=== PATIENT | male | born 1945 | race Caucasian/White ===

== ENCOUNTER 2017-02-20 17:37 | Inpatient (IN) | payer MEDICARE ==
[~2017-02-20] VITALS: Ht 172.7 cm; Wt 92.0 kg
--- NOTE | 2017-02-20 18:15 | NUR ---
Admit Direct admit from urgent care. Pt ambulates into hospital independently with steady gait and mask on. C/O coughing up bloody sputum. Denies Pain, CP, SOB, Nausea. Endorses appetite changes and little to no appetite. TB Precautions in place. at bedside. Care continues
[2017-02-20] MEDS ORDERED: Alum-Mag Hydrox-Simeth 30 mL Suspension PO PRN (19:45)
[2017-02-20] MEDS ORDERED: Polyethylene Glycol (PEG) 17 Gm Powder PO PRN (19:45)
[2017-02-20] MEDS ORDERED: Ondansetron 2 mg/mL 2 mL Inj IVPUSH PRN (19:45)
[2017-02-20 20:00] VITALS: BP 133/77; PULSE 86; RESP 18; O2SAT 96
[2017-02-20] MEDS ORDERED: UBID1CAP52 PO (20:19)
[2017-02-20] MEDS ORDERED: MULT-663 PO (20:19)
[2017-02-20] MEDS ORDERED: ASPI81TA3 PO (20:19)
[2017-02-20] MEDS ORDERED: COLC0.6T52 PO (20:19)
[2017-02-20 20:49] LABS: BASOPHILS % (AUTO) 0.2 % (0-3); EOSINOPHILS % (AUTO) 0.9 % (0-5); MONOCYTES % (AUTO) 19.1 % (4-12); Mean Corpuscular Hemoglobin 31.7 pg (27.0-35.0); Mean Corpuscular Volume 90.6 fL (81-100); NEUTROPHILS % (AUTO) 68.1 % (40-74); Platelet Count 166 bil/L (150-400)
[2017-02-20 21:23] LABS: Magnesium 1.8 mg/dL (1.6-2.6)
[2017-02-20] MEDS: 0.9% Sodium Chloride 1,000 ML IV SCH (23:37)
[2017-02-20] MEDS ORDERED: 0.9% Sodium Chloride 1,000 ML IV SCH (23:45)
--- NOTE | 2017-02-20 23:48 | PCM.HPMED ---
Subjective Date of Service Feb 20, 2017 Primary Provider: Admitting Physician: Gera Arzola MD Primary Care Physician: Abelardo eMndoza MD Attending Physician: Gera Arzola MD Chief Complaint: Hemoptysis History of Present Illness: Mr. Ritchie is a 71-year-old male with past medical history of gout and long-time nicotine dependence presented today to the urgent care secondary to hemoptysis 3 days. This is been accompanied with generalized weakness, night sweats, headaches and a reported 100 pound weight loss over the last 2 years. He states he was "runin a chainsaw" when these symptoms started 3 days ago and he has been coughing up clotted blood intermittently ever since. He states some shortness of breath though denies chest pain, palpitations. On inhalation or exhalation, abdominal pain, GI or symptoms numbness or tingling in his extremities, visual disturbances. Does not endorse a small headache but he states this is chronic ever since he was a small child. 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 States he has had asbestos exposure both in the [place] and then in his career afterwards. He states he did have a TB exposure in the 1950s from a neighbor child. Denies travel outside the [place] though does state travel to [facility] most parts of [place] and is [place] the [facility]. This past August he had a significant exposure to what his fiance refers to as "the black mold" and rat feces while cleaning out areas of a junk yard without gloves or mask. He currently lives with his fiance with 3 pet dogs, has never owned other pets, never owned birds. 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 Chest x-ray in urgent care showed a 5 cm cavitary mass in the right middle lobe thought to be lung neoplasm or abscess. Review of Systems: A comprehensive review of systems was conducted with the patient and found to be negative except as above in the history of present illness. Allergies Coded Allergies: No Known Allergies (Unverified , 02/20/17) Home Medications Per outpatient records: Aspirin, 81 mg daily Co Q-10, 10 mg daily Medicines multivitamin Recently discontinued Allopurinol 100 mg daily Verapamil 120 mg PMH Lifetime history of migraine headaches with auras beginning his young child, x 4 per year Surgical History Per outpatient records: Right wrist surgery Left great toe amputation Hypertension Migraine headaches Family History Noncontributory Social History Hx Alcohol Use: Yes (COUPLE TIMES WEEK) Hx Substance Use: Yes (MARIJUANNA AT TIMES) Hx Tobacco Use: Yes Smoking Status: Current Every Day Smoker (one pack per day) Living Arrangement: with Family Exam Exam General: Sitting up in hospital bed eating dinner in no acute distress, well- developed, well-nourished, appropriately interactive HEENT: Normocephalic, atraumatic. External ears without defect. Pupils equal, round, and reactive to light and accommodation. Neck: Supple with full range of motion. No jugular venous distension. Cardiovascular: Regular rate and rhythm with no murmurs, rubs, or gallops appreciated Pulmonary: Expiratory wheezes heard bilateral upper anterior lung pardo. Posterior lung pardo with no crackles or rhonchi. Normal respiratory effort with no use of accessory muscles. Good air movement. Abdomen: Bowel tones present. Soft, nontender, nondistended. Extremities: No clubbing, cyanosis, edema appreciated. Skin: Normal temperature, turgor, and texture Neurological: Cranial nerves grossly intact. Psychiatric: Normal mood and affect. Alert and oriented to person, place, and time. Lab and Diagnostics X-Rays, CTs and MRIs . X-RAY CHEST, TWO VIEWS IMPRESSION: 1. There is a 5 cm cavitary mass in the right middle lobe. Consider lung neoplasm or abscess (e.g., bacterial, fungal, tuberculosis). 2. Associated edema of the right middle lobe. 3. Findings discussed with Dr. Caryn Gutierrez. Dictated by: Zack Blanco MD on 02/20/2017 at 14:30 Assessment & Plan 71 male with no significant medical history admitted for hemoptysis 3 days with lung cavitary mass seen on x-ray. Hemoptysis. Present on admission. Ongoing - CXR as above - Infectious disease consult, recommendations appreciated - TB Isolation precautions - Appropriate cultures and serologies pending - Consider pulmonology consult for bronchoscopy Nicotine dependence. Present on admission. Ongoing - One pack per day smoker times many years - Refuses nicotine patch - Nicotine patch when necessary Hyponatremia. Present on admission. Ongoing - IV MS 100 ml/hr - Continue to monitor Patient Status: Patient was admitted under inpatient status with expected length of stay greater than two midnights due to severity of presenting symptoms , risk of adverse event, and complexity of treatment plan. CODE STATUS discussed with patient: He wishes to be DNR/DNI DVT prophylaxis SCDs, anticoagulation contraindicated at this time Pain Evaluation: Adequate Pain Control GI Prophylaxis: Proton Pump Inhibitor VTE Mechanical Devices: Intermittant Pneumatic CD Resuscitation Status: DNR/DNI:Do Not Resuscitate/Intubate Attending Statement The patient was seen and examined together with Dr. Payan on 02/20 and I agree with the history, exam and plan as outlined in the note above. MARCOS PAYAN DO Feb 20, 2017 20:22 Den Schulz MD Feb 21, 2017 03:53
[2017-02-21] VITALS (7 sets, daily range): BP systolic 111–128; BP diastolic 63–78; PULSE 67–88; RESP 16–20; O2SAT 93–99
[2017-02-21] MEDS: Sodium Chloride LOK Flush 10 mL Syringe IVFLUSH SCH ×3 (00:12→16:30)
[2017-02-21] MEDS ORDERED: HYDROmorphone 1 mg/mL Inj IVPUSH PRN (00:55)
--- NOTE | 2017-02-21 02:18 | NUR ---
Cough/Pain Pt coughing up bloody sputum, running temp. Administered tylenol and had + effects. Pt had sudden sharp pain to his right side, mid thoracic region. Pageissa BARNETT, rec'd order for dilaudid, administered and Pt able to sleep. Continues with cough. O2 sat 93% RA- Pt stated he felt SOB, put o2 on 1L via NC and maintaining 95%. Care continues
[2017-02-21 05:21] LABS: BASOPHILS % (AUTO) 0.3 % (0-3); EOSINOPHILS % (AUTO) 1.2 % (0-5); MONOCYTES % (AUTO) 20.9 % (4-12); Mean Corpuscular Hemoglobin 31.5 pg (27.0-35.0); NEUTROPHILS % (AUTO) 64.9 % (40-74); Platelet Count 180 bil/L (150-400)
[2017-02-21] MEDS: 0.9% Sodium Chloride 1,000 ML IV SCH ×2 (05:43→09:26)
--- NOTE | 2017-02-21 05:46 | NUR ---
Pain Sharp pains have continues, MD ordered morphine, very minimal relief. Admitting MD ordered stat CXR. pending. Pt continues with sharp pains and on 1L o2. care continues
--- NOTE | 2017-02-21 07:41 | CONS ---
[address] [address] CONSULTATION REPORT PATIENT: TIN BUCIO : 1945 MR#: [id number] ADMIT: 02/20/2017 JOB ID: [id number] DATE OF SERVICE: 02/20/2017 CONSULTING PHYSICIAN: I thank Dr. Falcon for this timely consult. REASON FOR CONSULT: Cavitary right mid lung mass. HISTORY OF PRESENT ILLNESS: The patient is a 71-year-old , who was in his usual state of reasonably good health until about three days ago, when he developed a severe cough which was productive of blood-tinged sputum. This was associated with some mid-sternal pleuritic chest pain. There was no associated fever or chills. He did have a few sweats lately, but this was due to some colchicine he was taking for a gout flare, and he notes that colchicine always gives him night sweats. He has not had any significant recent weight loss. There have been no periods of loss of consciousness, no travel, and no exposure to anyone with known TB. Aside from this cough, pleuritic chest pain, and hemoptysis, he has really been asymptomatic. PAST MEDICAL HISTORY: 1. Gout. 2. Hypertension. 3. Migraine headaches. 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 In that job, he had exposure to a lot of toxic materials, by his report. One of his current hobbies is cutting down trees, and he recently was exposed to a lot of sawdust while sawing down a tree. That was about 10 days ago. He is a social drinker. He smoked from the time he was a young man until he turned 62. Then he quit for several years, and restarted again one year ago. The patient's of alcoholism, and he now spends time with his fiance/girlfriend. FAMILY HISTORY: Negative for TB in first and second degree relatives. REVIEW OF SYSTEMS: The patient has chronic headaches. They are not any worse than normal. No sinus-type headache. No visual change. No sore throat or trouble swallowing. No swollen lymph nodes in the neck. Pulmonary symptoms are described above. No abdominal pain, nausea, vomiting, diarrhea, or dysuria. No urgency or frequency. No swelling of any joints. He has a left hand Dupuytren's contracture. No other particular joint or muscle issues. No neurological problems. The remainder of the review of systems is negative. PHYSICAL EXAMINATION: Reveals a gentleman who is in no acute distress. He is just in the process of being admitted to the hospital, so we do not even have a temperature yet. His pulse though is 75; respiratory rate 16 and nonlabored. His mental status is completely normal. There is no temporal wasting. Eyes without conjunctivitis. Oral cavity without thrush or hairy leukoplakia. No pharyngitis. No cervical adenopathy or stiff neck. Lungs are notable for some decreased breath sounds rather diffusely, and perhaps a few crackles at the bases, but no wheezing. Cardiac tones: Regular rate and rhythm, without murmurs, rubs, or gallops. Abdomen is soft and nontender, without organomegaly. There is no suprapubic fullness, and he does not have a Louis. No cervical or inguinal adenopathy. No swelling of the joints. The patient has no significant peripheral edema, and he has quite good peripheral pulses and capillary refill. He does have a Dupuytren's contracture of the left hand. Neurologically, he is completely intact. LABORATORY DATA: We have no labs yet as the staff internist office based only and I are just in the process of ordering labs. RADIOGRAPHIC DATA: We do have a chest x-ray, which was taken today in [place] before he was referred down here for admission. That x-ray shows about a 5 cm right mid-lung, cavitary, thick-walled lesion. The remainder of the lung areas do show what appear to me to be a couple of nodules, as well as some increased interstitial markings. That is not in the official read by the radiologist. IMPRESSION: My sense is this patient likely has a pulmonary malignancy. Tuberculosis, Nocardia lung abscess, Staphylococcus aureus, and a few other pathogens could be produce such a similar picture, but the patient really does not have much in the way of infectious symptoms at all. There is no exposure history of TB. He did serve briefly in the [employer], but was never overseas, has not had any contact with anyone with known TB, and I think that is quite unlikely. Likewise, there is no history of loss of consciousness, seizures, or other processes that would predispose him to a lung abscess. RECOMMENDATIONS: 1. The patient should be placed in isolation, and I discussed this with Dr. Falcon. 2. I have ordered two AFB smears from sputum to be associated with nucleic amplification studies. 3. Once we have back at least one of these_ amplification studies, the patient can be released from isolation. 4. Other studies to be done here would include a MRSA PCR of the nares, as well as a cryptococcal antigen and QuantiFERON Gold in the blood. 5. I discussed with the staff internist office based only, the other indicated studies, which will include CBC, CMP, CRP. 6. I will continue to watch this interesting patient with you. I think it might be reasonable to fairly quickly move ahead with a non-contrast CT of the chest as well. Thank you very much. CYNDI
[2017-02-21] MEDS ORDERED: Albuterol 2.5 mg/3 mL Inhalation Solution NEB PRN (07:55)
[2017-02-21] MEDS ORDERED: Albuterol-Ipratropium 3 mL Inhalation Solution NEB PRN (07:55)
--- NOTE | 2017-02-21 08:28 | DRSVH ---
PROCEDURE: X-RAY CHEST ONE VIEW, PORTABLE ([id number]) INDICATIONS: SOB with pain TECHNIQUE: One view of the chest was acquired. COMPARISON: None. FINDINGS: Surgical changes and devices: None. Lungs and pleura: No pleural effusions or pneumothorax. Airspace opacity noted in the right midlung concerning for pneumonia. Mediastinum: Mediastinal contours appear normal. Heart size is normal. Bones and chest wall: No suspicious bony lesions. Overlying soft tissues appear unremarkable. IMPRESSION: SC air right mid lung most compatible with pneumonia. Recommend followup imaging in 30 da ys following appropriate therapy for pneumonia to exclude underlying neoplastic process. Dictated by: Brooke Morejon MD, PhD on 02/21/2017 at 8:26 Approved by: Brooke Morejon MD, PhD on 02/21/2017 at 8:27
--- NOTE | 2017-02-21 08:38 | ABG ---
DateTimeAnalyzed 08:30:00 -_ pH ____7.414 - 7.350 7.450 pCO2 ___42.2__ -mmHg 35.0 45.0 pO2 ___75.9__ -mmHg 69.0 116 HCO3- ___26.5__ -mmol/L 22.0 26.0 ABE ____2.2__ -mmol/L -2.0 2.0 tHb ___13.4__ -g/dL O2Hb ___93.1__ -% COHb ____1.7__ -% MetHb ____0.8__ -% sO2 ___95.5__ -% 25.0 FIO2 ___24.0__ -% Drawn By jj - B 759 -mmHg tO2 ___17.6__ -Vol%
--- NOTE | 2017-02-21 08:41 | ABG ---
DateTimeAnalyzed 08:32:00 -_ pH ____7.418 - 7.350 7.450 pCO2 ___41.1__ -mmHg 35.0 45.0 pO2 ___79.3__ -mmHg 69.0 116 HCO3- ___26.0__ -mmol/L 22.0 26.0 ABE ____1.9__ -mmol/L -2.0 2.0 tHb ___13.4__ -g/dL O2Hb ___93.6__ -% COHb ____1.7__ -% MetHb ____0.9__ -% sO2 ___96.1__ -% 25.0 FIO2 ___24.0__ -% Drawn By RC - Date/Time Notified____ 08:40:00 -_ Spontaneous_RR ___18.0__ -b/min Oxygen Device 1 __CANNULA - Notified By JJ - B 759 -mmHg tO2 ___17.6__ -Vol% Dimitri test _Positive -
[2017-02-21] MEDS: Multivit-Miner-Folic Acid-Iron Tablet PO SCH (08:59)
--- NOTE | 2017-02-21 10:55 | DRSVH ---
PROCEDURE: CT ANGIO CHEST PULMONARY EMBOLISM ([id number]) INDICATIONS: lung mass, dyspnea, concern for PE, hemothorax TECHNIQUE: After the administration of intravenous contrast, 2 mm thick sections acquired from the pulmonary api geo to the posterior costophrenic angles. 3-dimensional maximum intensity projection (MIP) coronal a nd sagittal reformats were then acquired through the thorax. For radiation dose reduction, the follo wing was used: automated exposure control, adjustment of mA and/or kV according to patient size. COMPARISON: None. FINDINGS: Image quality: Excellent. Pulmonary arteries: Pulmonary arteries are normal in size, and demonstrate no intraluminal filling d efects to suggest central pulmonary embolism. Lungs and pleura: Consolidation noted in the right upper lobe. There is cavitation within the conso lidation in the right upper lobe that measures approximately 4.6 x 4.2 cm. Trace right-sided pleural effusion is noted. No pneumothorax. Central and peripheral airways are patent. Mediastinum: Heart size is normal, without pericardial effusion. 1.4 cm right hilar lymph node is no gonzález. 1.5 cm right paratracheal mediastinal lymph node is noted. Thoracic aorta is normal in caliber and enhancement. Esophagus is normal in caliber, without hiatal hernia. Bones and chest wall: No suspicious bony lesions. Ribs and thoracic spine appear intact throughout. Thyroid gland is within normal limits. No axillary or supraclavicular adenopathy. Abdomen: Visualized upper abdominal solid organs appear normal in the early arterial phase of enhanc ement. IMPRESSION: 1. 4.6 x 4.2 cm cavitary lesion in the right upper lobe situated area of airspace consolidation. Fi ndings suspicious for blastic neoplastic process with post obstructive pneumonia versus cavitary infe ctious process. 2. Right hilar and right paratracheal mediastinal lymphadenopathy which could be metastatic lymphade nopathy versus reactive lymphadenopathy. 3. No pulmonary embolus. Dictated by: Brooke Morejon MD, PhD on 02/21/2017 at 10:47 Approved by: Brooke Morejon MD, PhD on 02/21/2017 at 10:53
--- NOTE | 2017-02-21 14:03 | CONS ---
[address] [address] CONSULTATION REPORT PATIENT: TIN BUCIO : 1945 MR#: [id number] ADMIT: 02/20/2017 JOB ID: [id number] DATE OF SERVICE: 02/21/2017 REQUESTING PHYSICIAN: REASON FOR CONSULTATION: Cavitating lung nodule. HISTORY OF PRESENT ILLNESS: The patient is 71-year-old male who was in his usual state of good health until about three days ago. Then, while taking a shower, he states he coughed up some blood. Has not been having significant cough or any hemoptysis prior to that. Does describe some weakness. Maybe some night sweats. Has headaches but they are of his usual variety migraine headaches. Has lost 100 pounds over the past two years though this was an intentional dietary weight loss. Some mild shortness of breath. No chest pain until last night when, while coughing, he developed some chest pain in the right lateral chest. The patient has been in reasonably good health. Suffers from migraine headaches occurring about once a month. Uses Aleve for the headache as well as confinement to a dark quiet room. No prior lung problems. He states that as a child a neighbor, a girl who often baby-sat for him, was diagnosed with tuberculosis apparently by the mobile TB surveillance unit. He states she went to a sanitarium but only for a brief time. No other members of that family had tuberculosis. He did not particularly play with her though does state, as mentioned, that she often baby-sat for him. He then joined the [employer]. 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 Never exposed to asbestos during the [employer]. 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 Had to cut asbestos sheets off the pipe and often had to apply lagging. 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 There is a confluence of a foulness with cat feces and all kinds of riding junk. He says he often has to take weeks off because it is so discouraging. The patient has not had any prior lung problems. No pulmonary symptoms. TRAVEL HISTORY: The patient would often take 4 to 6-week trips on a motorcycle with his first who . About five years ago, they drove down the [place], meandered through [facility] and [place]. Also visited [place], never going as far as the [place]. Often rode through [place], [place], [place], [place] and the [facility]. 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 In the early days during the 60s, he did not wear any respiratory tract . As of the he did wear a two-cartridge mask. GEOGRAPHIC HISTORY: The patient was born in [place]. Lived in [place] his entire life. 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 Did work with the [employer] but mostly with a chowdhury, making some chairs. PETS: Three dogs. ALLERGIES: None known. MEDICATIONS: Include Aleve. Does not recall any other medicines though his chart mentions verapamil and allopurinol being recently discontinued. SMOKING HISTORY: The patient smoked one pack a day from his teenage years to age 62. He quit for number of years but recently restarted. FAMILY HISTORY: No family history of tuberculosis. Does not recall any pulmonary diseases in the family. OBJECTIVE: Temperature 37.4, though has been as high as 38.8, pulse 67-88, respiratory rate 16-20, blood pressure 128/72, O2 sat on 1 L is 96%. O2 sat on room air varies between 93 and 96%. General appearance: A well-developed, well-nourished, male, lying in bed. Watching TV. Awake, alert, appropriate. Eyes: Conjunctivae may be slightly suffused. No scleral icterus. Lymph nodes: None palpable. Chest: Fair breath sounds bilaterally. There is chest wall tenderness over the right lower anterior rib from about the 7th costochondral junction up extending to maybe the 4th or 5th rib in the anterior axillary line. No crepitus. No fluctuance. Breath sounds are somewhat slightly diminished. A coarse expiratory crackle more so on the right than the left but appreciated on the left. No use of accessory muscles. Heart: Regular rhythm. Heart tones normal. Abdomen: Soft. Nondistended. Nontender. Liver and spleen not palpable. No masses were palpable. Bowel tones present. Extremities: No clubbing, cyanosis, nor pretibial edema. LABORATORY DATA: Shows a white count 11,600 with 64 polymorphonuclears, 12 lymphs, 20 monocytes, one eosinophil. Hemoglobin 14.1. Platelets 180,000. Sodium 137, potassium 4.7, chloride 98, CO2 is 26, BUN 18, creatinine 1.1, glucose 148, calcium 8.8 with albumin of 3.1. Total bilirubin 0.5, AST 17, ALT 10, alkaline phos 61. A number of serologies pending. Chest x-ray shows a cavitating nodule in the right mid lung. CT angiogram with PE protocol shows no evidence of pulmonary emboli, pulmonary embolization. There is consolidation in the right upper lobe measuring about 5 x 4 cm with central cavitation with thick castle. There is a 1.4 cm right hilar node and a 1.5 cm right paratracheal mediastinal node. ASSESSMENT: Cavitating lesion. The patient is currently in airborne isolation, ruling out tuberculosis. Two sputa have been collected. Appropriate studies for TB are pending. However, I suspect this is more likely bronchogenic carcinoma. Alternatively, it may represent cavitary lesion from coccidioidomycosis. Cryptococcus may also be in the differential. Would doubt Aspergillus. No reason to invoke any of the vasculitides at this point. I think while we are a collecting the sputum for AFB we can collect a sputum for cytology. Once he is hopefully out of isolation, will proceed with bronchoscopy if a diagnosis is still not forthcoming. However, with his asbestos exposure and cigarette smoking, I would think bronchoscopy is very likely in his future almost no matter what the findings are. PLAN: 1. Continue evaluation for TB. 2. Sputum for cytology x3. 3. Coccidioides serology. 4. Await the AFB studies. Thank you so much, , for asking me see this most delightful and engaging individual. I will follow his respiratory status closely along with you.
[2017-02-21 15:11] LABS: Cryptococcal Ag Negative (Negative)
--- NOTE | 2017-02-21 15:19 | NUR ---
Social Work: Initial Assessment D: EMR reviewed. Pt is a 71 y/o male admitted for R/O TB, lung lesion per H&P. SW met with pt at bedside to conduct initial assessment. Pt was alert and oriented x3. SW explained role and wrote phone number on white board. SW provided DPOA/advanced directive ppw and pt's request and encouraged pt to provide a copy to the hospital when complete. Pt's primary contact is Amelia Mcneill ([phone]) and can be contacted for discharge planning. Pt's insurance is Medicare and PCP is Abelardo Mendoza MD. Pt has no Hx of HH or SNF. Pt has no LTC insurance or VA benefits. Pt is independent with ADLs. Pt does not use any DME. Pt drives. Pt is independent at baseline. Pt lives in a single-story home with 1 step to enter in [place] with his Fiance. Pt confirmed that his Fiance will transport him home via POV when pt is medically stable. SW does not anticipate any discharge needs at this time but will continue to follow if needs arise. A: Pt who is independent at baseline. P: Pt confirmed his Fiance will provide transport home via POV when pt is medically stable. SW does not anticipate any discharge needs at this time but will continue to follow if needs arise. AMANDA Muro Addendum: 02/21/17 at 1522 by OSCAR BOWLES SS Amended: Links added.
--- NOTE | 2017-02-21 17:54 | NUR ---
Pain Pt pain 7-05/31, treated with IV morphine, Pt stated pain doing better, pain medication allows him to sleep. pt stated pain better when he lays on right side, Tessalon pearles given to help with coughing. Pt still coughing up bright red blood with sputum, Pt on 1L O2 for comfort Sating at 95%. Pt making his needs known. resting comfortably at this time, will continue to monitor
--- NOTE | 2017-02-22 00:09 | PCM.PNMED ---
Subjective Date of Service Feb 21, 2017 Subjective That called by his nurse stating that patient is having a lot of pain. Patient was sleeping in the room laying on his right side. TB is pretty precautions are in place. He states that he has not had insurance because his who is now , has decided to cancel or coverage. So, even though he was having hemoptysis for several days he did not go to the urgent care until the pain got worse. He has blood tinged sputum but not blanca hemoptysis. He denies increased dyspnea. Exam Vital Signs Vital Sign - Last Date Time Temp Pulse Resp B/P Pulse Ox O2 Delivery O2 Flow Rate FiO2 02/21/17 04:30 36.6 67 18 112/78 99 Nasal Cannula 1.00 Intake and Output 02/20/17 02/20/17 02/21/17 Cumulative From/Thru 15:00 23:00 07:00 02/20/17 19:21 - 02/21/17 06:44 Intake Total 1642 ml 1642 ml Output Total 650 ml 650 ml Balance 992 ml 992 ml Intake Oral 950 ml 950 ml IV Total 692 ml 692 ml Output Urine Total 650 ml 650 ml Exam General: He is laying on his right side, sleeping HEENT: Normocephalic, atraumatic. External ears without defect. Pupils equal, round Neck: Supple with full range of motion. No jugular venous distension. Cardiovascular: Regular rate and rhythm with no murmurs, rubs, or gallops appreciated Pulmonary: Posterior lung pardo with no crackles or rhonchi. neg for wheezing. Normal respiratory effort with no use of accessory muscles. Good air movement. Abdomen: Bowel tones present. Soft, nontender, nondistended. Extremities: No clubbing, cyanosis, edema appreciated. Skin: Normal temperature, turgor, and texture Neurological: No focla deficits Psychiatric: Normal mood and affect. Alert and oriented to person, place, and time. IVs and Medications Medications Reviewed: Medications were reviewed in detail Lab and Diagnostics Result Diagram: 02/21/1751102/21/17511 X-Rays, CTs and MRIs . X-RAY CHEST, TWO VIEWS IMPRESSION: 1. There is a 5 cm cavitary mass in the right middle lobe. Consider lung neoplasm or abscess (e.g., bacterial, fungal, tuberculosis). 2. Associated edema of the right middle lobe. 3. Findings discussed with Dr. Caryn Gutierrez. Dictated by: Zack Blanco MD on 02/20/2017 at 14:30 PROCEDURE: CT ANGIO CHEST PULMONARY EMBOLISM ([id number]) INDICATIONS: lung mass, dyspnea, concern for PE, hemothorax TECHNIQUE: After the administration of intravenous contrast, 2 mm thick sections acquired from the pulmonary apices to the posterior costophrenic angles. 3-dimensional maximum intensity projection (MIP) coronal and sagittal reformats were then acquired through the thorax. For radiation dose reduction, the following was used: automated exposure control, adjustment of mA and/or kV according to patient size. IMPRESSION: 1. 4.6 x 4.2 cm cavitary lesion in the right upper lobe situated area of airspace consolidation. Findings suspicious for blastic neoplastic process with post obstructive pneumonia versus cavitary infectious process. 2. Right hilar and right paratracheal mediastinal lymphadenopathy which could be metastatic lymphadenopathy versus reactive lymphadenopathy. 3. No pulmonary embolus. Dictated by: Brooke Morejon MD, PhD on 02/21/2017 at 10:47 Approved by: Brooke Morejon MD, PhD on 02/21/2017 at 10:53 Assessment & Plan 71 male with no significant medical history admitted for hemoptysis 3 days with lung cavitary mass seen on x-ray. Hemoptysis. Present on admission. Ongoing - CXR as above - Infectious disease consult, recommendations appreciated - TB Isolation precautions - Appropriate cultures and serologies pending - Pulmonology is consulted for bronchoscopy: They have seen the patient, they will take him for a bronch after the TB cultures come back negative. We appreciate his recommendations -- Contacted Dr. Olivarez this morning who is already seen the patient, he hasvcryptococcal antibodies test, going interferon tests. He has AFB culturesx2 , he does not feel more necessary at this point. "Once we have back at least one of these_ amplification studies, the patient can be released from isolation." He also does not feel RIPE is called for. We appreciate his recommendations -- Ordered f/u H&H this AM, still stable though dropped from admission -- Continue to monitor -- ABG showed no concern for hypoxia.or hypercapnia -- CTA PE prtocol wa sneg for PE: "4.6 x 4.2 cm cavitary lesion in the right upper lobe situated area of airspace consolidation. Findings suspicious for blastic neoplastic process with post obstructive pneumonia versus cavitary infectious process. Right hilar and right paratracheal mediastinal lymphadenopathy which could be metastatic lymphadenopathy versus reactive lymphadenopathy." -- Reviewed OSH CT Chest, had findings similar to the above. -- Personally Reviewed the CXR form the ER Nicotine dependence. Present on admission. Ongoing - One pack per day smoker times many years - Refuses nicotine patch - Nicotine patch when necessary Hyponatremia. Present on admission. Resolved - IV MS 100 ml/hr - Continue to monitor Patient Status: Patient was admitted under inpatient status with expected length of stay greater than two midnights due to severity of presenting symptoms , risk of adverse event, and complexity of treatment plan. CODE STATUS discussed with patient: He wishes to be DNR/DNI DVT prophylaxis SCDs, anticoagulation contraindicated at this time Pain Evaluation: Pain not Controlled GI Prophylaxis: Proton Pump Inhibitor VTE Mechanical Devices: Intermittant Pneumatic CD Resuscitation Status: DNR/DNI:Do Not Resuscitate/Intubate Time spent 30 min Dian Reed DO Feb 21, 2017 08:06
[2017-02-22] MEDS: 0.9% Sodium Chloride 1,000 ML IV SCH ×3 (01:57→20:30)
[2017-02-22] MEDS: Sodium Chloride LOK Flush 10 mL Syringe IVFLUSH SCH ×4 (01:57→20:30)
[2017-02-22 05:20] VITALS: BP 125/74; PULSE 71; RESP 16; O2SAT 95
--- NOTE | 2017-02-22 06:05 | NUR ---
Pain/temp Pt reports intermittent R sided pleuritic pain, exacerbated with coughing. IV Morphine given x2, effective. Pt stated he was able to sleep intermittently. Pt febrile, Tylenol given.
[2017-02-22 08:54] VITALS: BP_SYST 120; BP_SYST 72; BP_DIAS 72; PULSE 67; RESP 16; O2SAT 95
[2017-02-22] MEDS: Multivit-Miner-Folic Acid-Iron Tablet PO SCH (08:55)
--- NOTE | 2017-02-22 11:10 | NUR ---
SELWYN signed by pt
--- NOTE | 2017-02-22 13:38 | PROG NOTE ---
[address] [address] PROGRESS NOTE PATIENT: TIN BUCIO : 1945 MR#: [id number] ADMIT: 02/20/2017 JOB ID: [id number] DATE: 02/22/2017 REASON FOR FOLLOWUP: Cavitary lesion right mid lung. INTERVAL HISTORY: The patient reports he has been having some low-grade fevers as well as continued sometimes productive cough. He also notes continued night sweats. No hemoptysis and no purulent or foul smelling sputum is reported, however. No GI symptoms. No skin rash. PHYSICAL EXAMINATION: Reveals a gentleman who has been febrile as high as 38.8 since his admission and just this morning 38.1, pulse 67, respiratory rate 16, blood pressure 125/74. He is saturating well on room air at this point, in no acute distress. Oral cavity negative. Lungs with a few crackles at the bases but nothing else. Abdomen slightly obese, soft and nontender. LABORATORIES: Include white count 11,800. No left shift is noted. He does have 21% monos. Creatinine is 1.11. LFTs are normal. Procalcitonin below 0.1 on two measurements. Serologies include a negative crypto antigen, cocci antibody as well as QuantiFERON Gold pending. Three sputums for AFB are pending. MRSA screen of the nares negative. The first sputum sample for routine Gram stain and culture has many polys with some rare lucrecia. IMPRESSION: When I initially saw this patient in consult earlier a couple days ago, I thought most likely had pulmonary malignancy as he did not have much in the way of infectious symptoms, but the development of low grade fevers is interesting. Also notable is the fact that his sputum has many polys which might be compatible with infection. He nonetheless has negative procalcitonins x2, and I do not think this in any way is a regular pneumonia. It is certainly possible he has a malignancy with postobstructive process or that he has a lung abscess. RECOMMENDATIONS: 1. We await the three sputum AFBs that are pending including two for nucleic acid amplification. 2. We await the QuantiFERON Gold as well as cocci antibodies. 3. I would go ahead and start the patient on Unasyn 3 g q.6 which will provide coverage for postobstructive pneumonia as well as potentially lung abscess should that end up being our eventual diagnosis. Thank you very much.
--- NOTE | 2017-02-22 15:11 | NUR ---
ACTIVITY Patient rated his pain on his R side as 8/10. Via FELDT scale patients pain level is at 0/10 after his pain medication. Tolerating liquids PO and his diet well. Denies nausea. No emesis noted. Denies SOB. Patient has been ambulating independently in the room. Gait is steady. Voiding without any problems. CIWA-0 at this time.
[2017-02-22 15:40] VITALS: BP 137/73; PULSE 80; RESP 20; O2SAT 94
[2017-02-22 20:00] VITALS: PULSE 83; RESP 20; O2SAT 98
[2017-02-22] MEDS: Ampicillin-Sulbactam Inj 3,000 MG in 0.9% Sodium Chloride 100 ML IV SCH (20:30)
[2017-02-22 20:55] VITALS: BP 129/70; PULSE 79; RESP 16; O2SAT 95
--- NOTE | 2017-02-23 01:30 | PCM.PNMED ---
Subjective Date of Service Feb 23, 2017 Subjective Patient is feeling better, does not appear that he is using oxygen today. He has a daughter and his fiance Visiting in the room. Their questions were answered and information was given on the management and tests that are being done. Patient states that he no longer has hemoptysis since noon today. No other concerns are expressed Exam Vital Signs Vital Sign - Last Date Time Temp Pulse Resp B/P Pulse Ox O2 Delivery O2 Flow Rate FiO2 02/22/17 22:39 37.5 02/22/17 20:55 79 16 129/70 95 Room Air 02/22/17 15:40 1.00 Intake and Output 02/22/17 02/22/17 02/23/17 Cumulative From/Thru 15:00 23:00 07:00 02/20/17 19:21 - 02/22/17 20:00 Intake Total 2566 ml 7706 ml Output Total 600 ml 2600 ml Balance 1966 ml 5106 ml Intake Oral 1456 ml 3806 ml IV Total 1110 ml 3900 ml Output Urine Total 600 ml 2600 ml # Voids 2 Exam General: He is laying on his right side, sleeping HEENT: Normocephalic, atraumatic. External ears without defect. Neck: Supple with full range of motion. No jugular venous distension. Cardiovascular: Regular rate and rhythm with no murmurs, rubs, or gallops appreciated Pulmonary: Posterior lung pardo with no crackles or rhonchi. neg for wheezing. Normal respiratory effort with no use of accessory muscles. Good air movement. Abdomen: Bowel tones present. Soft, nontender, nondistended. Extremities: No clubbing, cyanosis, edema appreciated. Skin: Normal temperature, turgor, and texture Neurological: No focal deficits Psychiatric: Normal mood and affect. Alert and oriented to person, place, and time. IVs and Medications Medications Reviewed: Medications were reviewed in detail Lab and Diagnostics Result Diagram: 02/22/17 0507 02/21/17 0512 X-Rays, CTs and MRIs . X-RAY CHEST, TWO VIEWS IMPRESSION: 1. There is a 5 cm cavitary mass in the right middle lobe. Consider lung neoplasm or abscess (e.g., bacterial, fungal, tuberculosis). 2. Associated edema of the right middle lobe. 3. Findings discussed with Dr. Caryn Gutierrez. Dictated by: Zack Blanco MD on 02/20/2017 at 14:30 PROCEDURE: CT ANGIO CHEST PULMONARY EMBOLISM ([id number]) INDICATIONS: lung mass, dyspnea, concern for PE, hemothorax TECHNIQUE: After the administration of intravenous contrast, 2 mm thick sections acquired from the pulmonary apices to the posterior costophrenic angles. 3-dimensional maximum intensity projection (MIP) coronal and sagittal reformats were then acquired through the thorax. For radiation dose reduction, the following was used: automated exposure control, adjustment of mA and/or kV according to patient size. IMPRESSION: 1. 4.6 x 4.2 cm cavitary lesion in the right upper lobe situated area of airspace consolidation. Findings suspicious for blastic neoplastic process with post obstructive pneumonia versus cavitary infectious process. 2. Right hilar and right paratracheal mediastinal lymphadenopathy which could be metastatic lymphadenopathy versus reactive lymphadenopathy. 3. No pulmonary embolus. Dictated by: Brooke Morejon MD, PhD on 02/21/2017 at 10:47 Approved by: Brooke Morejon MD, PhD on 02/21/2017 at 10:53 Assessment & Plan 71 male with no significant medical history admitted for hemoptysis 3 days with lung cavitary mass seen on x-ray. Postobstructive pneumonia: As evidenced by the CTA of chest done on 02/22/17 -- Unasyn 3 g Q6H as initiated per ID -- Monitor blood cultures -- Sputum culture are ordered -- Urine strep, urine Legionella antigens were ordered Hemoptysis. Present on admission. Ongoing - CXR as above -- Reviewed OSH CT Chest, had findings similar to the above. -- Personally Reviewed the CXR form the ER - Infectious disease consult, recommendations appreciated - TB Isolation precautions - Appropriate cultures and serologies pending - Pulmonology is consulted for bronchoscopy: They have seen the patient, they will take him for a bronch after the TB cultures come back negative. We appreciate his recommendations -- Contacted Dr. Olivarez this morning who is already seen the patient, he hasvcryptococcal antibodies test, going interferon tests. He has AFB culturesx2 , he does not feel more necessary at this point. "Once we have back at least one of these_ amplification studies, the patient can be released from isolation." He also does not feel RIPE is called for. We appreciate his recommendations -- Ordered f/u H&H this AM, still stable though dropped from admission -- ABG showed no concern for hypoxia.or hypercapnia -- CTA PE prtocol wa sneg for PE: "4.6 x 4.2 cm cavitary lesion in the right upper lobe situated area of airspace consolidation. Findings suspicious for blastic neoplastic process with post obstructive pneumonia versus cavitary infectious process. Right hilar and right paratracheal mediastinal lymphadenopathy which could be metastatic lymphadenopathy versus reactive lymphadenopathy." -- tessalon perls for cough -- Pain control with Morphine 4 mg Q3HPRN Nicotine dependence. Present on admission. Ongoing - One pack per day smoker times many years - Refuses nicotine patch - Nicotine patch when necessary Hyponatremia. Present on admission. Resolved - IV NSS 50 ml/hr - Continue to monitor Patient Status: Patient was admitted under inpatient status with expected length of stay greater than two midnights due to severity of presenting symptoms , risk of adverse event, and complexity of treatment plan. CODE STATUS discussed with patient: He wishes to be DNR/DNI DVT prophylaxis SCDs, anticoagulation contraindicated at this time due to hemoptysis Disposition: Patient can be discharged once the first set of AFB cultures are back negative, pulmonology will do the bronchoscopy for a tissue biopsy once the isolation is cleared. At that time, patient can be discharged home on pain medication with a f/u with onc. Pain Evaluation: Adequate Pain Control GI Prophylaxis: Proton Pump Inhibitor VTE Mechanical Devices: Intermittant Pneumatic CD Resuscitation Status: DNR/DNI:Do Not Resuscitate/Intubate Time spent 25 min Dian Reed DO Feb 23, 2017 01:30
[2017-02-23] MEDS: Ampicillin-Sulbactam Inj 3,000 MG in 0.9% Sodium Chloride 100 ML IV SCH ×4 (02:28→20:12)
--- NOTE | 2017-02-23 04:25 | NUR ---
Pain/temp pt reported pleuritic pain on the R side of his chest 8/10 in intensity. he was given 4mg of IV morphine at bedtime and has denied the need for any further pain medication. he has productive cough but says there has not been blood in it this shift. he has been febrile this shift with the highest temp being 38.8 Celsius. temp being managed with tylenol. he has been up independently in the room. he says he does become more SOB with activity but denies dizziness or weakness, he is steady on his feet. care continues.
[2017-02-23 05:15] VITALS: BP 134/71; PULSE 85; RESP 18; O2SAT 93
[2017-02-23 06:25] LABS: BASOPHILS % (AUTO) 0.3 % (0-3); EOSINOPHILS % (AUTO) 0.7 % (0-5); MONOCYTES % (AUTO) 21.6 % (4-12); Mean Corpuscular Hemoglobin 31.2 pg (27.0-35.0); Mean Corpuscular Volume 90.4 fL (81-100); NEUTROPHILS % (AUTO) 72.1 % (40-74); Platelet Count 196 bil/L (150-400)
[2017-02-23] MEDS: Sodium Chloride LOK Flush 10 mL Syringe IVFLUSH SCH ×3 (07:46→20:33)
[2017-02-23] MEDS: Multivit-Miner-Folic Acid-Iron Tablet PO SCH (07:47)
[2017-02-23 07:52] VITALS: BP 139/78; PULSE 83; RESP 20; O2SAT 94
[2017-02-23 08:20] LABS: ERYTHROCYTE SEDIMENTATION RATE 56 mm/hr (0-30)
--- NOTE | 2017-02-23 11:28 | PROG NOTE ---
[address] [address] PROGRESS NOTE PATIENT: TIN BUCIO : 1945 MR#: [id number] ADMIT: 02/20/2017 JOB ID: [id number] DATE: 02/23/2017 REASON FOR FOLLOWUP: Right mid lung cavitary lesion. INTERVAL HISTORY: The patient has experienced both fever and sweats overnight. No significant chills. He continues to have a pretty severe cough with some right pleuritic chest pain productive of whitish sputum. No nausea, vomiting, diarrhea, and generally feels better than when he came in. PHYSICAL EXAMINATION: Reveals a gentleman who has been febrile last night up to 38.8, right now 37.1, pulse 83, respiratory rate 20, blood pressure 139/78, saturating well on room air. He is in no acute distress. Mental status normal. Oral cavity negative. Lungs with poor air flow bilaterally with scattered rales and rhonchi, but no focality. Cardiac tones without murmur. Abdomen negative. LABORATORIES: Include a white count which is basically stuck at 11,800, and has been since admission, 21% monocytes. Sed rate 56. CRP 23. Creatinine 0.92. LFTs are normal. Urinalysis pending. Urine Legionella negative. Cryptococcal antigen negative. Pneumococcal antigen negative. One of three AFB smears, is back and is negative. The nucleic acid amplification is pending. IMAGING: Imaging of the chest was already reviewed. IMPRESSION: The patient is doing relatively well today. We are still waiting on the additional cultures to rule out tuberculosis before we might be able to consider bronchoscopy for more definitive diagnosis in ruling out of neoplasm. Whether this patient has infection, tumor, or both is unclear at this point, and I am concerned about the possibility of a postobstructive pneumonia and, for that reason we are using Unasyn. It is also possible that this is strictly just a cavitary pneumonia or lung abscess and that there is no tumor, and hopefully that will be the outcome. RECOMMENDATIONS: 1. Will continue with the Unasyn. 2. We await the AFB stains and the nucleic acid amplification. 3. This case discussed with the laboratory regarding disposition of the specimens.
[2017-02-23 12:21] VITALS: BP 132/77; PULSE 77; RESP 16; O2SAT 98
[2017-02-23] MEDS: 0.9% Sodium Chloride 1,000 ML IV SCH (13:42)
--- NOTE | 2017-02-23 14:50 | PCM.PNMED ---
Subjective Date of Service Feb 23, 2017 Subjective Patient continues to have cough. Patient continues to have fever and sweating. Awaiting TB test results Exam Vital Signs Vital Sign - Last Date Time Temp Pulse Resp B/P Pulse Ox O2 Delivery O2 Flow Rate FiO2 02/23/17 12:21 37.1 77 16 132/77 98 Nasal Cannula 1.00 Intake and Output 02/22/17 02/22/17 02/23/17 Cumulative From/Thru 15:00 23:00 07:00 02/20/17 19:21 - 02/23/17 05:47 Intake Total 2566 ml 800 ml 8506 ml Output Total 600 ml 850 ml 3450 ml Balance 1966 ml -50 ml 5056 ml Intake Oral 1456 ml 800 ml 4606 ml IV Total 1110 ml 3900 ml Output Urine Total 600 ml 850 ml 3450 ml # Voids 2 Exam General: Sitting in chair and comfortable. Sweating noted HEENT: Normocephalic, atraumatic. External ears without defect. Neck: Supple with full range of motion. No jugular venous distension. Cardiovascular: Regular rate and rhythm with no murmurs, rubs, or gallops appreciated Pulmonary: Posterior lung pardo with no crackles or rhonchi. neg for wheezing. Normal respiratory effort with no use of accessory muscles. Good air movement. Abdomen: Bowel tones present. Soft, nontender, nondistended. Extremities: No clubbing, cyanosis, edema appreciated. Skin: Normal temperature, turgor, and texture Neurological: No focal deficits Psychiatric: Normal mood and affect. Alert and oriented to person, place, and time. IVs and Medications Medications Reviewed: Medications were reviewed in detail Lab and Diagnostics Result Diagram: 02/23/17 0550 02/23/17 0550 X-Rays, CTs and MRIs . X-RAY CHEST, TWO VIEWS IMPRESSION: 1. There is a 5 cm cavitary mass in the right middle lobe. Consider lung neoplasm or abscess (e.g., bacterial, fungal, tuberculosis). 2. Associated edema of the right middle lobe. 3. Findings discussed with Dr. Caryn Gutierrez. Dictated by: Zack Blanco MD on 02/20/2017 at 14:30 PROCEDURE: CT ANGIO CHEST PULMONARY EMBOLISM ([id number]) INDICATIONS: lung mass, dyspnea, concern for PE, hemothorax TECHNIQUE: After the administration of intravenous contrast, 2 mm thick sections acquired from the pulmonary apices to the posterior costophrenic angles. 3-dimensional maximum intensity projection (MIP) coronal and sagittal reformats were then acquired through the thorax. For radiation dose reduction, the following was used: automated exposure control, adjustment of mA and/or kV according to patient size. IMPRESSION: 1. 4.6 x 4.2 cm cavitary lesion in the right upper lobe situated area of airspace consolidation. Findings suspicious for blastic neoplastic process with post obstructive pneumonia versus cavitary infectious process. 2. Right hilar and right paratracheal mediastinal lymphadenopathy which could be metastatic lymphadenopathy versus reactive lymphadenopathy. 3. No pulmonary embolus. Dictated by: Brooke Morejon MD, PhD on 02/21/2017 at 10:47 Approved by: Brooke Morejon MD, PhD on 02/21/2017 at 10:53 Assessment & Plan 71 male with no significant medical history admitted for hemoptysis 3 days with lung cavitary mass seen on x-ray. # suspected Postobstructive pneumonia: As evidenced by the CTA of chest done on 02/22/17 -- Unasyn 3 g Q6H as initiated per ID -- Sputum AFB stain negative -- Urine strep, urine Legionella antigens negative # Hemoptysis with cavitary lung lesion . Present on admission. Ongoing -Infectious due to an abscess or TB versus lung mass - CXR as above -- Reviewed OSH CT Chest, had findings similar to the above. - TB Isolation precautions until QuantiFERON goal test result is available - Appropriate cultures and serologies pending -ESR 56 procal negative - Pulmonology is consulted for bronchoscopy: They have seen the patient, they will take him for a bronch after the TB cultures come back negative. We appreciate his recommendations -ID Dr Olivarez on board -- ABG showed no concern for hypoxia.or hypercapnia -- CTA PE prtocol wa sneg for PE: "4.6 x 4.2 cm cavitary lesion in the right upper lobe situated area of airspace consolidation. Findings suspicious for blastic neoplastic process with post obstructive pneumonia versus cavitary infectious process. Right hilar and right paratracheal mediastinal lymphadenopathy which could be metastatic lymphadenopathy versus reactive lymphadenopathy." -- tessalon perls for cough -- Pain control with Morphine 4 mg Q3HPRN # Nicotine dependence. Present on admission. Ongoing - One pack per day smoker times many years - Refuses nicotine patch - Nicotine patch when necessary # Hyponatremia. Present on admission. Resolved - IV NSS 50 ml/hr - Continue to monitor CODE STATUS discussed with patient: He wishes to be DNR/DNI DVT prophylaxis SCDs, anticoagulation contraindicated at this time due to hemoptysis Disposition: Patient can be discharged once the first set of AFB cultures are back negative, pulmonology will do the bronchoscopy for a tissue biopsy once the isolation is cleared. At that time, patient can be discharged home on pain medication with a f/u with onc. GI Prophylaxis: Proton Pump Inhibitor VTE Mechanical Devices: Intermittant Pneumatic CD Resuscitation Status: DNR/DNI:Do Not Resuscitate/Intubate Cricket Gama MD Feb 23, 2017 14:50 back negative, pulmonology will do the bronchoscopy for a tissue biopsy once the isolation is cleared. At that time, patient can be discharged home on pain medication with a f/u with onc. GI Prophylaxis: Proton Pump Inhibitor VTE Mechanical Devices: Intermittant Pneumatic CD Resuscitation Status: DNR/DNI:Do Not Resuscitate/Emilyte Cricket Gama MD Feb 23, 2017 14:50
[2017-02-23 16:07] VITALS: BP 139/79; PULSE 76; RESP 20; O2SAT 98
[2017-02-23 19:42] VITALS: BP 136/77; PULSE 84; RESP 18; O2SAT 96
[2017-02-23 21:00] VITALS: PULSE 73; RESP 18; O2SAT 95
[2017-02-24] MEDS: 0.9% Sodium Chloride 1,000 ML IV SCH (01:13)
[2017-02-24] MEDS: Ampicillin-Sulbactam Inj 3,000 MG in 0.9% Sodium Chloride 100 ML IV SCH ×4 (01:58→21:48)
--- NOTE | 2017-02-24 04:41 | NUR ---
pain/temp pt given 4mg of IV morphine for pleuritic pain on R side of chest. pain is exacerbated by coughing. pt states the IV morphine effectively reduces his pain for 4-5 hrs. he denied need for tessalon perles for cough. pt has been on RA for most of the night, occasionally puts on 1L of 02 via NC for comfort. pt told nurse he only feels SOB when he is having a coughing fit. pt was febrile this shift. highest temp was 38.6, tylenol given. care continues.
[2017-02-24 05:08] VITALS: BP 127/75; PULSE 73; RESP 18; O2SAT 95
[2017-02-24 08:00] VITALS: PULSE 64; RESP 18; O2SAT 95
[2017-02-24 08:04] VITALS: BP 136/79; PULSE 64; RESP 18; O2SAT 95
[2017-02-24] MEDS: Sodium Chloride LOK Flush 10 mL Syringe IVFLUSH SCH ×3 (08:30→23:35)
[2017-02-24] MEDS: Multivit-Miner-Folic Acid-Iron Tablet PO SCH (09:21)
--- NOTE | 2017-02-24 09:30 | NUR ---
Cough Patient reported frequent cough. 100 mg of Tessalon Pearles given. Denies pain and nausea. Patient repositions self for comfort. Call light and tray table within reach. Will continue to monitor patient hourly. Addendum: 02/24/17 at 1312 by MADELAINE LUTZ RN Cough still persistent. notified. 5mg Robitussin AC ordered and given. Will continue to monitor patient hourly
[2017-02-24] MEDS: Codeine-guaiFENesin 10 mL Syrup PO PRN (12:11)
--- NOTE | 2017-02-24 13:52 | PCM.PNMED ---
Subjective Date of Service Feb 24, 2017 Subjective Continues to have fever and sweating. Continues to have cough and hemoptysis. Patient states he had weight loss since he retired 2 years ago but denies recent weight loss in the last 6 months. Exam Vital Signs Vital Sign - Last Date Time Temp Pulse Resp B/P Pulse Ox O2 Delivery O2 Flow Rate FiO2 02/24/17 08:04 37.5 64 18 136/79 95 Nasal Cannula 02/24/17 08:00 1.00 Intake and Output 02/23/17 02/23/17 02/24/17 Cumulative From/Thru 15:00 23:00 07:00 02/20/17 19:21 - 02/24/17 06:15 Intake Total 2201 ml 2172 ml 1360 ml 92424 ml Output Total 1550 ml 820 ml 5820 ml Balance 2201 ml 622 ml 540 ml 8419 ml Intake Oral 1666 ml 600 ml 6872 ml IV Total 2201 ml 506 ml 760 ml 7367 ml Output Urine Total 1550 ml 820 ml 5820 ml # Voids 2 # Bowel Movements 1 0 1 Exam General: Sitting in chair and comfortable. Sweating noted HEENT: Normocephalic, atraumatic. External ears without defect. Neck: Supple with full range of motion. No jugular venous distension. Cardiovascular: Regular rate and rhythm with no murmurs, rubs, or gallops appreciated Pulmonary: Posterior lung pardo with no crackles or rhonchi. neg for wheezing. Normal respiratory effort with no use of accessory muscles. Good air movement. Abdomen: Bowel tones present. Soft, nontender, nondistended. Extremities: No clubbing, cyanosis, edema appreciated. Skin: Normal temperature, turgor, and texture Neurological: No focal deficits Psychiatric: Normal mood and affect. Alert and oriented to person, place, and time. IVs and Medications Medications Reviewed: Medications were reviewed in detail Lab and Diagnostics Result Diagram: 02/23/17 0550 02/23/17 0550 X-Rays, CTs and MRIs . X-RAY CHEST, TWO VIEWS IMPRESSION: 1. There is a 5 cm cavitary mass in the right middle lobe. Consider lung neoplasm or abscess (e.g., bacterial, fungal, tuberculosis). 2. Associated edema of the right middle lobe. 3. Findings discussed with Dr. Caryn Gutierrez. Dictated by: Zack Blanco MD on 02/20/2017 at 14:30 PROCEDURE: CT ANGIO CHEST PULMONARY EMBOLISM ([id number]) INDICATIONS: lung mass, dyspnea, concern for PE, hemothorax TECHNIQUE: After the administration of intravenous contrast, 2 mm thick sections acquired from the pulmonary apices to the posterior costophrenic angles. 3-dimensional maximum intensity projection (MIP) coronal and sagittal reformats were then acquired through the thorax. For radiation dose reduction, the following was used: automated exposure control, adjustment of mA and/or kV according to patient size. IMPRESSION: 1. 4.6 x 4.2 cm cavitary lesion in the right upper lobe situated area of airspace consolidation. Findings suspicious for blastic neoplastic process with post obstructive pneumonia versus cavitary infectious process. 2. Right hilar and right paratracheal mediastinal lymphadenopathy which could be metastatic lymphadenopathy versus reactive lymphadenopathy. 3. No pulmonary embolus. Dictated by: Brooke Morejon MD, PhD on 02/21/2017 at 10:47 Approved by: Brooke Morejon MD, PhD on 02/21/2017 at 10:53 Assessment & Plan 71 male with no significant medical history admitted for hemoptysis 3 days with lung cavitary mass seen on x-ray. # suspected Postobstructive pneumonia: As evidenced by the CTA of chest done on 02/22/17 -- Unasyn 3 g Q6H as initiated per ID -- Sputum AFB stain negative -- Urine strep, urine Legionella antigens negative # Hemoptysis with cavitary lung lesion . Present on admission. Ongoing -Infectious due to an abscess or TB versus lung mass - CXR as above -- Reviewed OSH CT Chest, had findings similar to the above. - TB Isolation precautions until QuantiFERON goal test result is available -ESR 56 procal negative - Pulmonology is consulted for bronchoscopy: They have seen the patient, they will take him for a bronch after the TB cultures QUANTIFERON gold test come back negative. -ID Dr Olivarez on board -- ABG showed no concern for hypoxia.or hypercapnia -- CTA PE prtocol wa sneg for PE: "4.6 x 4.2 cm cavitary lesion in the right upper lobe situated area of airspace consolidation. Findings suspicious for blastic neoplastic process with post obstructive pneumonia versus cavitary infectious process. Right hilar and right paratracheal mediastinal lymphadenopathy which could be metastatic lymphadenopathy versus reactive lymphadenopathy." -- tessalon perls for cough -- Pain control with Morphine 4 mg Q3HPRN # Nicotine dependence. Present on admission. Ongoing - One pack per day smoker times many years - Refuses nicotine patch - Nicotine patch when necessary # Hyponatremia. Present on admission. Resolved - IV NSS 50 ml/hr - Continue to monitor CODE STATUS discussed with patient: He wishes to be DNR/DNI DVT prophylaxis SCDs, anticoagulation contraindicated at this time due to hemoptysis Disposition: Patient can be discharged once the first set of AFB cultures are back negative, pulmonology will do the bronchoscopy for a tissue biopsy once the isolation is cleared. At that time, patient can be discharged home on pain medication with a f/u with onc. GI Prophylaxis: Proton Pump Inhibitor VTE Mechanical Devices: Intermittant Pneumatic CD Resuscitation Status: DNR/DNI:Do Not Resuscitate/Intubate Cricket Gama MD Feb 24, 2017 13:52
[2017-02-24 14:22] VITALS: BP 128/74; PULSE 77; RESP 18; O2SAT 95
--- NOTE | 2017-02-24 15:49 | NUR ---
Social Work: Continued D/C Planning D: EMR reviewed. Pt is a 71 y/o male admitted for R/O TB, lung lesion per H&P. Pt is not medically stable for discharge at this time, anticipate 3-4 more days. Per MD in rounds, pt's TB test is pending. If pt's test is negative, then a bronchoscopy may be considered.SW received call from pt's fiancee regarding update, SW attempted T/C to [facility] [phone], left message. Pt is independent at baseline. Pt confirmed that his Fiance will transport him home via POV when he is medically stable. SW does not anticipate any discharge needs at this time but will continue to follow if needs arise. A: Pt who is independent at baseline. P: Pt confirmed his Fiance will provide transport home via POV when pt is medically stable. SW does not anticipate any discharge needs at this time but will continue to follow if needs arise. Migdalia James, FRIT COATER
--- NOTE | 2017-02-24 15:54 | PROG NOTE ---
[address] [address] PROGRESS NOTE PATIENT: TIN BUCIO : 1945 MR#: [id number] ADMIT: 02/20/2017 JOB ID: [id number] DATE: 02/24/2017 INFECTIOUS DISEASE FOLLOW UP NOTE: REASON FOR FOLLOWUP: Right pulmonary cavity. INTERVAL HISTORY: Overnight, the patient has continued to have low-grade fevers, a cough which is intermittently productive and intermittently with hemoptysis and little else has changed. He has no significant headache. He is not short of breath though he does have the cough. No nausea, vomiting, diarrhea. PHYSICAL EXAMINATION: Reveals a gentleman who appears about the same every day, currently 38 degrees. During the night he was 38.6. Pulse in the 70s, respiratory rate in the upper 10s. Blood pressure 128/74, still saturates well on room air. Examination of the oral cavity remains unremarkable. His lungs are notable for a few crackles at the bases but not impressive. Cardiac tones regular rate and rhythm. Abdomen unchanged. No skin rash. LABORATORIES: 1. Include a white count which is consistently 11,000. The differential unremarkable except for 21% monocytes. Sed rate 56, creatinine 0.92. LFTs normal. Procalcitonin is negative. Urinalysis negative. Downey C antibodies are pending. QuantiFERON Gold is pending but the cryptococcal antigen is negative. 2. Sputum AFB stains are back negative as is the nucleic acid amplification for TB. MRSA screen also negative as is Legionella and pneumococcal urine antigens. IMAGING: We have no new imaging. IMPRESSION: This patient has a right lung cavitary process which is likely either malignancy with postobstructive pneumonia or conceivably a lung abscess. No evidence at this point for TB. RECOMMENDATIONS: 1. Will continue with Unasyn. 2. I think the next reasonable step here is to do a bronchoscopy if that is technically feasible in hopes of obtaining samples and producing a definitive diagnosis. RECOMMENDATIONS: 1. Will continue with Unasyn. 2. We await Pulmonary's plans regarding possible bronchoscopy.
[2017-02-24 18:24] VITALS: BP 141/73; PULSE 69; RESP 18; O2SAT 95
[2017-02-24 19:55] VITALS: BP 133/69; PULSE 67; RESP 18; O2SAT 93
--- NOTE | 2017-02-24 20:43 | NUR ---
Pain/temp Pt c/o chest discomfort 04/30. VSS. Morphine 4mg IVP given and helpful per pt pain now 0. Temp 38.6. Tylenol 650mg given Temp reduced to 37.1. Pt stable in room reading a book and smiling. Care ongoing.
[2017-02-25] VITALS (8 sets, daily range): BP systolic 120–147; BP diastolic 70–80; PULSE 66–86; RESP 18–20; O2SAT 91–99
[2017-02-25] MEDS: Ampicillin-Sulbactam Inj 3,000 MG in 0.9% Sodium Chloride 100 ML IV SCH ×4 (03:47→21:25)
[2017-02-25] MEDS: 0.9% Sodium Chloride 1,000 ML IV SCH (03:50)
[2017-02-25 08:31] LABS: EOSINOPHILS % (AUTO) 3.4 % (0-5); MONOCYTES % (AUTO) 18.4 % (4-12); Mean Corpuscular Hemoglobin 31.3 pg (27.0-35.0); Mean Corpuscular Volume 91.9 fL (81-100); NEUTROPHILS % (AUTO) 66.9 % (40-74); Platelet Count 256 bil/L (150-400)
[2017-02-25] MEDS ORDERED: Lactated Ringer's 1,000 ML IV ONE (09:08)
[2017-02-25] MEDS: Lidocaine Topical 2% 30 mL Jelly TOPICAL ONE (09:10)
[2017-02-25] MEDS ORDERED: Lidocaine PF 2% 10 mL Inj MUC_MEMBRM PRN (09:10)
[2017-02-25] MEDS ORDERED: Lidocaine PF 2% 10 mL Inj MUC_MEMBRM ONE (09:10)
--- NOTE | 2017-02-25 09:59 | DRSVH ---
PROCEDURE: X-RAY CHEST, TWO VIEWS ([id number]) INDICATIONS: Cavitary mass RUL TECHNIQUE: 2 views of the chest were acquired. COMPARISON: [facility], CR, XR CHEST 1VW (PORTABLE), 02/21/2017, 5:53. [facility] , CR, XR CHEST 2VW, 02/20/2017, 12:56. FINDINGS: Surgical changes and devices: None. Lungs and pleura: Cavitary mass again visualized within the right upper lobe and there is been interv al increase in diffuse airspace opacity throughout the right lung as well as new air space opacity no w involving the left lung base. Small right pleural effusion is now evident. No pneumothorax. Mediastinum: Mediastinal contours are normal. Heart size is normal. Bones and chest wall: No suspicious bony abnormalities. Soft tissues appear unremarkable. IMPRESSION: 1. Cavitary mass within the right upper lobe redemonstrated and interval increase in diffuse right nicole ng airspace opacity as well as no air space opacity within the left lower lobe suggesting worsening a djacent right lung and contralateral inflammatory or neoplastic process. Continued radiographic surv eillance to resolution is recommended. 2. New small right pleural effusion. Dictated by: Derrick Montoya RRA Interpreted: Brooke Morejon MD on 02/25/2017 at 9:54 Transcribed by: FERMIN on 02/25/2017 at 9:58 Approved by: Brooke Morejon MD, PhD on 02/25/2017 at 10:08
[2017-02-25] MEDS: Sodium Chloride LOK Flush 10 mL Syringe IVFLUSH SCH ×2 (10:02→16:55)
[2017-02-25] MEDS: Multivit-Miner-Folic Acid-Iron Tablet PO SCH (10:08)
--- NOTE | 2017-02-25 11:08 | PCM.PNMED ---
Subjective Date of Service Feb 25, 2017 Subjective Patient continues to have cough and hemoptysis. Continues to have fever and sweating Exam Vital Signs Vital Sign - Last Date Time Temp Pulse Resp B/P Pulse Ox O2 Delivery O2 Flow Rate FiO2 02/25/17 09:18 38.2 86 18 147/80 91 Nasal Cannula 1.00 Intake and Output 02/24/17 02/24/17 02/25/17 Cumulative From/Thru 15:00 23:00 07:00 02/20/17 19:21 - 02/25/17 06:01 Intake Total 736 ml 530 ml 75133 ml Output Total 5820 ml Balance 736 ml 530 ml 9685 ml Intake Oral 6872 ml IV Total 736 ml 510 ml 8613 ml Tube Irrigant 20 ml 20 ml Output Urine Total 5820 ml # Voids 2 # Bowel Movements 1 Exam General:in bed , actively coughing HEENT: Normocephalic, atraumatic. External ears without defect. Neck: Supple with full range of motion. No jugular venous distension. Cardiovascular: Regular rate and rhythm with no murmurs, rubs, or gallops appreciated Pulmonary: Posterior lung pardo with no crackles or rhonchi. neg for wheezing. Normal respiratory effort with no use of accessory muscles. Good air movement. Abdomen: Bowel tones present. Soft, nontender, nondistended. Extremities: No clubbing, cyanosis, edema appreciated. Skin: Normal temperature, turgor, and texture Neurological: No focal deficits Psychiatric: Normal mood and affect. Alert and oriented to person, place, and time. IVs and Medications Medications Reviewed: Medications were reviewed in detail Lab and Diagnostics Result Diagram: 02/25/1781202/25/17 0813 X-Rays, CTs and MRIs . X-RAY CHEST, TWO VIEWS IMPRESSION: 1. There is a 5 cm cavitary mass in the right middle lobe. Consider lung neoplasm or abscess (e.g., bacterial, fungal, tuberculosis). 2. Associated edema of the right middle lobe. 3. Findings discussed with Dr. Caryn Gutierrez. Dictated by: Zack Blanco MD on 02/20/2017 at 14:30 PROCEDURE: CT ANGIO CHEST PULMONARY EMBOLISM ([id number]) INDICATIONS: lung mass, dyspnea, concern for PE, hemothorax TECHNIQUE: After the administration of intravenous contrast, 2 mm thick sections acquired from the pulmonary apices to the posterior costophrenic angles. 3-dimensional maximum intensity projection (MIP) coronal and sagittal reformats were then acquired through the thorax. For radiation dose reduction, the following was used: automated exposure control, adjustment of mA and/or kV according to patient size. IMPRESSION: 1. 4.6 x 4.2 cm cavitary lesion in the right upper lobe situated area of airspace consolidation. Findings suspicious for blastic neoplastic process with post obstructive pneumonia versus cavitary infectious process. 2. Right hilar and right paratracheal mediastinal lymphadenopathy which could be metastatic lymphadenopathy versus reactive lymphadenopathy. 3. No pulmonary embolus. Dictated by: Brooke Morejon MD, PhD on 02/21/2017 at 10:47 Approved by: Brooke Morejon MD, PhD on 02/21/2017 at 10:53 PROCEDURE: X-RAY CHEST, TWO VIEWS ([id number]) INDICATIONS: Cavitary mass RUL TECHNIQUE: 2 views of the chest were acquired. . IMPRESSION: 1. Cavitary mass within the right upper lobe redemonstrated and interval increase in diffuse right lung airspace opacity as well as no air space opacity within the left lower lobe suggesting worsening adjacent right lung and contralateral inflammatory or neoplastic process. Continued radiographic surveillance to resolution is recommended. 2. New small right pleural effusion. Dictated by: Derrick Montoya RR Interpreted: Brooke Morejon MD on 02/25/2017 at 9:54 Assessment & Plan 71 male with no significant medical history admitted for hemoptysis 3 days with lung cavitary mass seen on x-ray. # suspected Postobstructive pneumonia: As evidenced by the CTA of chest done on 02/22/17 -- Unasyn 3 g Q6H per ID -- Sputum AFB stain negative -- Urine strep, urine Legionella antigens negative -Repeat chest x-ray today 02/25 worsening of pneumonia. Patient continues to fever. Maybe need to broaden antibiotics. Will discuss with ID # Hemoptysis with cavitary lung lesion . Present on admission. Ongoing -Infectious due to an abscess or TB versus lung mass - CXR as above - TB Isolation precautions removed -ESR 56 procal negative - Pulmonology is consulted for possible bronchoscopy: -ID Dr Olivarez on board -- ABG showed no concern for hypoxia.or hypercapnia -- CTA PE prtocol wa sneg for PE: "4.6 x 4.2 cm cavitary lesion in the right upper lobe situated area of airspace consolidation. Findings suspicious for blastic neoplastic process with post obstructive pneumonia versus cavitary infectious process. Right hilar and right paratracheal mediastinal lymphadenopathy which could be metastatic lymphadenopathy versus reactive lymphadenopathy." -- tessalon perls and codeine for cough -- Pain control with Morphine 4 mg Q3HPRN # Nicotine dependence. Present on admission. Ongoing - One pack per day smoker times many years - Refuses nicotine patch - Nicotine patch when necessary # Hyponatremia. Present on admission. Resolved - IV NSS 50 ml/hr - Continue to monitor CODE STATUS discussed with patient: He wishes to be DNR/DNI DVT prophylaxis SCDs, anticoagulation contraindicated at this time due to hemoptysis Disposition: Pending clinical course GI Prophylaxis: Proton Pump Inhibitor VTE Mechanical Devices: Intermittant Pneumatic CD Resuscitation Status: DNR/DNI:Do Not Resuscitate/Intubate Cricket Gama MD Feb 25, 2017 11:08 Resuscitation Status: DNR/DNI:Do Not Resuscitate/Intubate Cricket Gama MD Feb 25, 2017 11:08
--- NOTE | 2017-02-25 11:12 | PROG NOTE ---
[address] [address] PROGRESS NOTE PATIENT: TIN BUCIO : 1945 MR#: [id number] ADMIT: 02/20/2017 JOB ID: [id number] DATE: 02/25/2017 INFECTIOUS DISEASE FOLLOWUP NOTE: REASON FOR FOLLOWUP: Cavitary lung lesion. INTERVAL HISTORY: The patient continues to experience low-grade fevers and to have some cough, which is largely nonproductive. He is not significantly short of breath. He has no chills or rigors, and no GI symptoms. PHYSICAL EXAMINATION: Temperature is currently 38.2, pulse 86, respiratory rate 18, blood pressure 147/80. He is saturating well on 1 L nasal cannula. He is in no acute distress. Oral cavity negative. Lungs with scattered rales at the bases more on the right than the left. Cardiac tones distant. Abdomen benign but obese. LABORATORIES: Include a white count 9600, platelets 256. Creatinine 0.83. Procalcitonin 0.08. It has been negative on two occasions. Downey C antibodies are pending, as is QuantiFERON Gold. Crypto antigens negative. Urine legionella and pneumococcal negative. Galactomannan and Fungitell pending. Sputum AFB x3 negative. Sputum nucleic acid amplification for TB negative x1. Sputum culture had many polys and some mixed lucrecia. Our last chest x-ray was done just yesterday which shows a cavitary mass in the right upper lobe and a new right small pleural effusion. IMPRESSION: I have personally reviewed the films and discussed this case in detail in person with Dr. Beaver of pulmonary. We think the differential diagnosis revolves around a lung abscess type process versus malignancy with infiltrating tumor of some degree of obstruction and resultant infection. RECOMMENDATIONS: 1. Will continue with Unasyn. 2. We await the pending serologies, and will add galactomannan and Fungitell to our serology collection. 3. Tentatively scheduled for bronchoscopy tomorrow which hopefully will provide a diagnosis. MTDD
[2017-02-26] VITALS (11 sets, daily range): BP systolic 118–151; BP diastolic 65–86; PULSE 65–87; RESP 16–20; O2SAT 88–99
[2017-02-26] MEDS: Sodium Chloride LOK Flush 10 mL Syringe IVFLUSH SCH ×3 (00:04→15:50)
[2017-02-26] MEDS: 0.9% Sodium Chloride 1,000 ML IV SCH ×3 (02:02→12:41)
[2017-02-26] MEDS: Ampicillin-Sulbactam Inj 3,000 MG in 0.9% Sodium Chloride 100 ML IV SCH ×4 (04:09→21:34)
[2017-02-26] MEDS: Multivit-Miner-Folic Acid-Iron Tablet PO SCH (07:49)
[2017-02-26] MEDS: Codeine-guaiFENesin 10 mL Syrup PO PRN ×2 (07:54→13:49)
[2017-02-26] MEDS ORDERED: fentaNYL-PF 50 mCg/mL 2 mL Inj IVPUSH PRN (08:00)
--- NOTE | 2017-02-26 08:10 | PCM.PNMED ---
Subjective Date of Service Feb 26, 2017 Subjective Continues to have cough and hemoptysis. Going for bronchoscopy today. Exam Vital Signs Vital Sign - Last Date Time Temp Pulse Resp B/P Pulse Ox O2 Delivery O2 Flow Rate FiO2 02/26/17 06:30 37.1 68 18 151/78 98 Room Air 02/26/17 05:28 1.00 Intake and Output 02/25/17 02/25/17 02/26/17 Cumulative From/Thru 15:00 23:00 07:00 02/20/17 19:21 - 02/26/17 02:00 Intake Total 800 ml 1963 ml 63968 ml Output Total 1050 ml 1800 ml 8670 ml Balance -250 ml 163 ml 9598 ml Intake Oral 800 ml 1230 ml 8902 ml IV Total 733 ml 9346 ml Tube Irrigant 20 ml Output Urine Total 1050 ml 1800 ml 8670 ml # Voids 4 6 # Bowel Movements 1 1 3 Exam General:in bed , actively coughing HEENT: Normocephalic, atraumatic. External ears without defect. Neck: Supple with full range of motion. No jugular venous distension. Cardiovascular: Regular rate and rhythm with no murmurs, rubs, or gallops appreciated Pulmonary: Posterior lung pardo with no crackles or rhonchi. neg for wheezing. Normal respiratory effort with no use of accessory muscles. Good air movement. Abdomen: Bowel tones present. Soft, nontender, nondistended. Extremities: No clubbing, cyanosis, edema appreciated. Skin: Normal temperature, turgor, and texture Neurological: No focal deficits Psychiatric: Normal mood and affect. Alert and oriented to person, place, and time. IVs and Medications Medications Reviewed: Medications were reviewed in detail Lab and Diagnostics Result Diagram: 02/25/1781202/25/17 08 X-Rays, CTs and MRIs . X-RAY CHEST, TWO VIEWS IMPRESSION: 1. There is a 5 cm cavitary mass in the right middle lobe. Consider lung neoplasm or abscess (e.g., bacterial, fungal, tuberculosis). 2. Associated edema of the right middle lobe. 3. Findings discussed with Dr. Caryn Gutierrez. Dictated by: Zack Blanco MD on 02/20/2017 at 14:30 PROCEDURE: CT ANGIO CHEST PULMONARY EMBOLISM ([id number]) INDICATIONS: lung mass, dyspnea, concern for PE, hemothorax TECHNIQUE: After the administration of intravenous contrast, 2 mm thick sections acquired from the pulmonary apices to the posterior costophrenic angles. 3-dimensional maximum intensity projection (MIP) coronal and sagittal reformats were then acquired through the thorax. For radiation dose reduction, the following was used: automated exposure control, adjustment of mA and/or kV according to patient size. IMPRESSION: 1. 4.6 x 4.2 cm cavitary lesion in the right upper lobe situated area of airspace consolidation. Findings suspicious for blastic neoplastic process with post obstructive pneumonia versus cavitary infectious process. 2. Right hilar and right paratracheal mediastinal lymphadenopathy which could be metastatic lymphadenopathy versus reactive lymphadenopathy. 3. No pulmonary embolus. Dictated by: Brooke Morejon MD, PhD on 02/21/2017 at 10:47 Approved by: Brooke Morejon MD, PhD on 02/21/2017 at 10:53 PROCEDURE: X-RAY CHEST, TWO VIEWS ([id number]) INDICATIONS: Cavitary mass RUL TECHNIQUE: 2 views of the chest were acquired. . IMPRESSION: 1. Cavitary mass within the right upper lobe redemonstrated and interval increase in diffuse right lung airspace opacity as well as no air space opacity within the left lower lobe suggesting worsening adjacent right lung and contralateral inflammatory or neoplastic process. Continued radiographic surveillance to resolution is recommended. 2. New small right pleural effusion. Dictated by: Derrick Montoya RRA Interpreted: Brooke Morejon MD on 02/25/2017 at 9:54 Assessment & Plan 71 male with no significant medical history admitted for hemoptysis 3 days with lung cavitary mass seen on x-ray. # suspected Postobstructive pneumonia: As evidenced by the CTA of chest done on 02/22/17 -- Unasyn 3 g Q6H per ID -- Sputum AFB stain negative -- Urine strep, urine Legionella antigens negative -Repeat chest x-ray today 02/25 worsening of pneumonia. Bronchoscopy today # Hemoptysis with cavitary lung lesion . Present on admission. Ongoing -Infectious due to an abscess versus underlying lung mass - CXR as above - TB Isolation precautions removed -ESR 56 procal negative - Pulmonology is consulted and planning to do bronchoscopy today: -ID Dr Olivarez on board -- Initial ABG showed no hypoxia.or hypercapnia -- CTA PE prtocol wa sneg for PE: "4.6 x 4.2 cm cavitary lesion in the right upper lobe situated area of airspace consolidation. Findings suspicious for blastic neoplastic process with post obstructive pneumonia versus cavitary infectious process. Right hilar and right paratracheal mediastinal lymphadenopathy which could be metastatic lymphadenopathy versus reactive lymphadenopathy." -- tessalon perls and codeine/guaifenesin for cough -- Pain control with Morphine 4 mg Q3HPRN # Nicotine dependence. Present on admission. Ongoing - One pack per day smoker times many years - Refuses nicotine patch - Nicotine patch when necessary # Hyponatremia. Present on admission. Resolved - Continue to monitor CODE STATUS discussed with patient: He wishes to be DNR/DNI DVT prophylaxis SCDs, anticoagulation contraindicated at this time due to hemoptysis Disposition: Pending hospital course GI Prophylaxis: Proton Pump Inhibitor VTE Mechanical Devices: Intermittant Pneumatic CD Resuscitation Status: DNR/DNI:Do Not Resuscitate/Intubate Cricket Gama MD Feb 26, 2017 08:10
[2017-02-26] MEDS: Lidocaine Topical 2% 30 mL Jelly TOPICAL ONE (10:30)
[2017-02-26] MEDS ORDERED: Lidocaine Topical 2% 30 mL Jelly ONE (10:31)
[2017-02-26 14:09] LABS: BFWBC 357 /mm3; MONOCYTES,BODY FLUID 4 %; OTHER CELLS,BODY FLUID 9
--- NOTE | 2017-02-26 15:54 | NUR ---
Back on unit Pt returned from [facility] at 1340 in w/c. Able to transfer self to bed. Sleepy, but oriented. On RA, connected to [facility]ER[facility] and sating at 92%, will continue to monitor oxygen needs. 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 Would like medicine for his cough. Pt asking for water and is okay to AAT to general diet. Bed in low, call light in reach, continue Q1 hour monitoring. Addendum: 02/26/17 at 1831 by SALVATORE BURNS RN Pt desating to 88-90% while sleeping, placed on 3L NC and is sating at 95-97%. ordered chest xray. Will continue to monitor.
--- NOTE | 2017-02-26 18:25 | DRSVH ---
PROCEDURE: X-RAY CHEST ONE VIEW, PORTABLE ([id number]) INDICATIONS: postbronch TECHNIQUE: One view of the chest was acquired. COMPARISON: Prior chest plain films from 02/25/[address] angiogram 02/21/[address] chest/abdomen/pe lvis 02/20/17 reviewed. FINDINGS: Surgical changes and devices: None. Lungs and pleura: No pleural effusions or pneumothorax. Lungs are improving with a lesser degree of air-fluid level seen at the right midlung in an area of central to pneumonia involving the right rodrigue g. Mediastinum: Mediastinal contours appear normal. Heart size is normal. Bones and chest wall: No suspicious bony lesions. Overlying soft tissues appear unremarkable. IMPRESSION: Right lung pneumonia slowly improving, lesser degree of air-level at the right midlung w ith an area of presumed lung necrosis from pneumonia. Dictated by: Guille Gould M.D. on 02/26/2017 at 18:23 Approved by: Guille Gould M.D. on 02/26/2017 at 18:23
[2017-02-27] MEDS: Sodium Chloride LOK Flush 10 mL Syringe IVFLUSH SCH ×3 (00:30→18:24)
[2017-02-27] MEDS: Ampicillin-Sulbactam Inj 3,000 MG in 0.9% Sodium Chloride 100 ML IV SCH ×4 (02:47→20:20)
--- NOTE | 2017-02-27 03:25 | NUR ---
Pain/temp Pt afebrile this shift. C/o pain 8/10, rec'd prn morphine with + effects, states pain is stabbing located to right side of chest. Pt found comfortable position and was able to rest. Using urinal at bedside. Bed in low position, call light in reach. care continues
[2017-02-27 06:20] VITALS: BP 145/66; PULSE 72; RESP 16; O2SAT 96
--- NOTE | 2017-02-27 08:36 | ENDO ---
[address] [address] ENDOSCOPY PROCEDURE PATIENT: TIN BUCIO : 1945 MR#: [id number] ADMIT: 02/20/2017 JOB ID: [id number] DATE OF PROCEDURE: 02/26/2017 PROCEDURE: Flexible video bronchoscopy. PREOPERATIVE DIAGNOSIS(ES): Cavitary lung mass. POSTOPERATIVE DIAGNOSIS(ES): Cavitary lung mass. PROCEDURE SUMMARY: After written informed consent, a flexible video bronchoscopy was performed. Complete discussion of the procedure, indications, alternatives and risks was held with the patient who had an opportunity to ask questions. After addressing his questions, he signed his consent. DESCRIPTION OF PROCEDURE: The patient was taken to the endoscopy department at [facility]. A time-out was performed. He was sedated with intravenous midazolam and fentanyl and topical airway anesthesia was obtained using aerosolized 2% Lidocaine. While the patient was on continuous pulse oximetry, end-tidal capnography and EKG monitoring, a well lubricated flexible scope was passed via the left naris to the level of the true vocal cords. These appeared normal in appearance and moved fully and symmetrically. These were anesthetized with 2% lidocaine via the suction channel of the scope. The scope was then passed along the trachea with careful inspection thereof. The trachea mucosa was grossly normal throughout. The david was encountered and was also anesthetized with 2% lidocaine via the suction channel. There was a small several millimeter papule on the anterolateral wall at the level of the david that appeared to be a small inflammatory nodule or granuloma. This was not biopsied. The scope was passed into the left mainstem bronchus. Inspection was made of the left upper lobe, lingular orifice and all segments of the left lower lobe. These were grossly normal in appearance, but for changes of chronic bronchitis with mucosal atrophy, longitudinal light bands and some pitting. The scope was withdrawn to the david and then advanced into the right mainstem bronchus. The right upper lobe orifice was a normal trifurcation. In this area, the mucosa was diffusely mildly indurated but did not appear particularly inflamed given the absence of any friability or significant erythema. Minimal mucoid secretions were present. The bronchus intermedius was similarly indurated over the proximal 1/2 of its length. The origin of the right middle lobe and all basal segments of the right lower lobe were inspected and found to be grossly normal but for changes of chronic bronchitis as were present throughout. The scope was returned to the right upper lobe orifice. It was placed into a wedge position in the posterior segmental orifice and bronchoalveolar lavage was performed using three sequential 40 mL aliquots of non bacteriostatic saline. Return was rather poor with only approximately total of 20 cc returned. The lavage fluid was nearly clear and relatively free of purulence or blood. The trap was removed. A cytology brush was then advanced under direct vision into the posterior segmental orifice of the right upper lobe and brushings were obtained in this region as well. The brush was withdrawn and submitted for cytologic analysis. Excess lavage fluid was suctioned from the tracheobronchial tree and the procedure was completed and the scope withdrawn. SPECIMENS: 1. Bronchoalveolar lavage fluid for mycobacterial, bacterial and fungal cultures along with cell count and differential and cytology. 2. Cytology brush for cytology. The patient's condition following procedure stable and alert with no change in oxygenation compared to before. [facility]
[2017-02-27] MEDS: Multivit-Miner-Folic Acid-Iron Tablet PO SCH (08:46)
[2017-02-27 09:03] VITALS: PULSE 84
[2017-02-27 09:08] VITALS: BP 131/68; PULSE 79; RESP 16; O2SAT 94
--- NOTE | 2017-02-27 11:24 | NUR ---
Social Work: Continued Discharge Planning D: EMR reviewed. Pt is on day 7 of hospitalization. Per MD in AM multi-disciplinary rounds, pt's TB test was negative and pt received a bronchoscopy on 02/26. MD stated that pt is likely to discharge on 03/01. Pt is independent at baseline. Pt confirmed that his SO will transport him home via POV when he is medically stable. SW does not anticipate any discharge needs at this time but will continue to follow if needs arise. A: Pt who is independent at baseline P: Pt confirmed his SO will provide transport home via POV when pt is medically stable. SW does not anticipate any discharge needs at this time but will continue to follow if needs arise. AMANDA Muro
--- NOTE | 2017-02-27 12:26 | PCM.PNMED ---
Subjective Date of Service Feb 27, 2017 Subjective Continues to cough, Less hemoptysis. Afebrile. Patient had slight desaturation last night. Saturation okay on 1 L now Exam Vital Signs Vital Sign - Last Date Time Temp Pulse Resp B/P Pulse Ox O2 Delivery O2 Flow Rate FiO2 02/27/17 09:08 36.9 79 16 131/68 94 Room Air 02/27/17 06:20 3.00 Intake and Output 02/26/17 02/26/17 02/27/17 Cumulative From/Thru 15:00 23:00 07:00 02/20/17 19:21 - 02/27/17 06:20 Intake Total 1499 ml 474 ml 483 ml 27128 ml Output Total 1000 ml 600 ml 700 ml 09013 ml Balance 499 ml -126 ml -217 ml 9754 ml Intake Oral 200 ml 358 ml 236 ml 9696 ml IV Total 1299 ml 116 ml 247 ml 86605 ml Tube Irrigant 20 ml Output Urine Total 1000 ml 600 ml 700 ml 16302 ml # Voids 6 # Bowel Movements 0 0 3 Exam General:in bed , actively coughing HEENT: Normocephalic, atraumatic. External ears without defect. Neck: Supple with full range of motion. No jugular venous distension. Cardiovascular: Regular rate and rhythm with no murmurs, rubs, or gallops appreciated Pulmonary: Posterior lung pardo with no crackles or rhonchi. neg for wheezing. Normal respiratory effort with no use of accessory muscles. Good air movement. Abdomen: Bowel tones present. Soft, nontender, nondistended. Extremities: No clubbing, cyanosis, edema appreciated. Skin: Normal temperature, turgor, and texture Neurological: No focal deficits Psychiatric: Normal mood and affect. Alert and oriented to person, place, and time. IVs and Medications Medications Reviewed: Medications were reviewed in detail Lab and Diagnostics Result Diagram: 02/25/1781202/25/17812 X-Rays, CTs and MRIs . X-RAY CHEST, TWO VIEWS IMPRESSION: 1. There is a 5 cm cavitary mass in the right middle lobe. Consider lung neoplasm or abscess (e.g., bacterial, fungal, tuberculosis). 2. Associated edema of the right middle lobe. 3. Findings discussed with Dr. Caryn Gutierrez. Dictated by: Zack Blanco MD on 02/20/2017 at 14:30 PROCEDURE: CT ANGIO CHEST PULMONARY EMBOLISM ([id number]) INDICATIONS: lung mass, dyspnea, concern for PE, hemothorax TECHNIQUE: After the administration of intravenous contrast, 2 mm thick sections acquired from the pulmonary apices to the posterior costophrenic angles. 3-dimensional maximum intensity projection (MIP) coronal and sagittal reformats were then acquired through the thorax. For radiation dose reduction, the following was used: automated exposure control, adjustment of mA and/or kV according to patient size. IMPRESSION: 1. 4.6 x 4.2 cm cavitary lesion in the right upper lobe situated area of airspace consolidation. Findings suspicious for blastic neoplastic process with post obstructive pneumonia versus cavitary infectious process. 2. Right hilar and right paratracheal mediastinal lymphadenopathy which could be metastatic lymphadenopathy versus reactive lymphadenopathy. 3. No pulmonary embolus. Dictated by: Brooke Morejon MD, PhD on 02/21/2017 at 10:47 Approved by: Brooke Morejon MD, PhD on 02/21/2017 at 10:53 PROCEDURE: X-RAY CHEST, TWO VIEWS ([id number]) INDICATIONS: Cavitary mass RUL TECHNIQUE: 2 views of the chest were acquired. . IMPRESSION: 1. Cavitary mass within the right upper lobe redemonstrated and interval increase in diffuse right lung airspace opacity as well as no air space opacity within the left lower lobe suggesting worsening adjacent right lung and contralateral inflammatory or neoplastic process. Continued radiographic surveillance to resolution is recommended. 2. New small right pleural effusion. Dictated by: Derrick Montoya [facility] Interpreted: Brooke Morejon MD on 02/25/2017 at 9:54 Assessment & Plan 71 male with no significant medical history admitted for hemoptysis 3 days with lung cavitary mass seen on x-ray. # suspected Postobstructive pneumonia: As evidenced by the CTA of chest done on 02/22/17 -- Unasyn 3 g Q6H per ID -- Sputum AFB stain negative -- Urine strep, urine Legionella antigens negative -Repeat chest x-ray 02/25 worsening of pneumonia. Bronchoscopy done on 02/26. Awaiting bronchial washings and cytology # Hemoptysis with cavitary lung lesion . Present on admission. Ongoing -Infectious due to an abscess versus underlying lung mass - CXR as above - TB Isolation precautions removed -ESR 56 procal negative - Pulmonology is consulted. Bronchoscopy done on 02/26. Awaiting bronchial washings and cytology -ID Dr Olivarez on board -- Initial ABG showed no hypoxia.or hypercapnia -- CTA PE prtocol wa sneg for PE: "4.6 x 4.2 cm cavitary lesion in the right upper lobe situated area of airspace consolidation. Findings suspicious for blastic neoplastic process with post obstructive pneumonia versus cavitary infectious process. Right hilar and right paratracheal mediastinal lymphadenopathy which could be metastatic lymphadenopathy versus reactive lymphadenopathy." -- tessalon perls and codeine/guaifenesin for cough -- Pain control with Morphine 4 mg Q3HPRN # Nicotine dependence. Present on admission. Ongoing - One pack per day smoker times many years - Refuses nicotine patch - Nicotine patch when necessary # Hyponatremia. Present on admission. Resolved - Continue to monitor CODE STATUS discussed with patient: He wishes to be DNR/DNI DVT prophylaxis SCDs, anticoagulation contraindicated at this time due to hemoptysis Disposition: Pending hospital course GI Prophylaxis: Proton Pump Inhibitor VTE Mechanical Devices: Intermittant Pneumatic CD Resuscitation Status: DNR/DNI:Do Not Resuscitate/Intubate Cricket Gama MD Feb 27, 2017 12:26
--- NOTE | 2017-02-27 13:41 | PCM.PNMED ---
Subjective Date of Service Feb 27, 2017 Exam Vital Signs Vital Sign - Last Date Time Temp Pulse Resp B/P Pulse Ox O2 Delivery O2 Flow Rate FiO2 02/27/17 09:08 36.9 79 16 131/68 94 Room Air 02/27/17 06:20 3.00 Intake and Output 02/26/17 02/26/17 02/27/17 Cumulative From/Thru 15:00 23:00 07:00 02/20/17 19:21 - 02/27/17 06:20 Intake Total 1499 ml 474 ml 483 ml 69120 ml Output Total 1000 ml 600 ml 700 ml 30585 ml Balance 499 ml -126 ml -217 ml 9754 ml Intake Oral 200 ml 358 ml 236 ml 9696 ml IV Total 1299 ml 116 ml 247 ml 41283 ml Tube Irrigant 20 ml Output Urine Total 1000 ml 600 ml 700 ml 01931 ml # Voids 6 # Bowel Movements 0 0 3 Lab and Diagnostics Result Diagram: 02/25/17 0813 02/25/17 0813 X-Rays, CTs and MRIs . X-RAY CHEST, TWO VIEWS IMPRESSION: 1. There is a 5 cm cavitary mass in the right middle lobe. Consider lung neoplasm or abscess (e.g., bacterial, fungal, tuberculosis). 2. Associated edema of the right middle lobe. 3. Findings discussed with Dr. Caryn Gutierrez. Dictated by: Zack Blanco MD on 02/20/2017 at 14:30 PROCEDURE: CT ANGIO CHEST PULMONARY EMBOLISM ([id number]) INDICATIONS: lung mass, dyspnea, concern for PE, hemothorax TECHNIQUE: After the administration of intravenous contrast, 2 mm thick sections acquired from the pulmonary apices to the posterior costophrenic angles. 3-dimensional maximum intensity projection (MIP) coronal and sagittal reformats were then acquired through the thorax. For radiation dose reduction, the following was used: automated exposure control, adjustment of mA and/or kV according to patient size. IMPRESSION: 1. 4.6 x 4.2 cm cavitary lesion in the right upper lobe situated area of airspace consolidation. Findings suspicious for blastic neoplastic process with post obstructive pneumonia versus cavitary infectious process. 2. Right hilar and right paratracheal mediastinal lymphadenopathy which could be metastatic lymphadenopathy versus reactive lymphadenopathy. 3. No pulmonary embolus. Dictated by: Brooke Morejon MD, PhD on 02/21/2017 at 10:47 Approved by: Brooke Morejon MD, PhD on 02/21/2017 at 10:53 PROCEDURE: X-RAY CHEST, TWO VIEWS ([id number]) INDICATIONS: Cavitary mass RUL TECHNIQUE: 2 views of the chest were acquired. . IMPRESSION: 1. Cavitary mass within the right upper lobe redemonstrated and interval increase in diffuse right lung airspace opacity as well as no air space opacity within the left lower lobe suggesting worsening adjacent right lung and contralateral inflammatory or neoplastic process. Continued radiographic surveillance to resolution is recommended. 2. New small right pleural effusion. Dictated by: Derrick Montoya [facility] Interpreted: Brooke Morejon MD on 02/25/2017 at 9:54 Assessment & Plan Underwent flexible bronchoscopy 02/26, see note for details. Minimal material obtained and I'm concerned we will remain without a specific diagnosis. Given the thickness of the wall of his cavity I think we are obliged to obtain tissue to r/o a malignancy. I've spoken with patient's hospitalist, Dr. Cruz, and advised CT guided needle bx of the lesion. Dr. Cruz will arrange for this, perhaps as an outpatient and results can be conveyed to the available community pulmonary physician when results are available. GI Prophylaxis: Proton Pump Inhibitor VTE Mechanical Devices: Intermittant Pneumatic CD Resuscitation Status: DNR/DNI:Do Not Resuscitate/Intubate Shashi Beaver MD Feb 27, 2017 13:41
--- NOTE | 2017-02-27 14:15 | PATH ---
SURGICAL PATHOLOGY Attending Physician:See Additional MD CASE STATUS: Signed Out PATIENT NAME: Dae Ritchie PID: [id number] : 1945 DATE COLLECTED:02/26/2017 00:00 SPECIMEN: Right Upper Lobe Lung Brushing CLINICAL HISTORY: Right Upper Lobe Lung Brushing ICD-10 code not given FINAL DIAGNOSIS: RIGHT UPPER LOBE LUNG BRUSHING CYTOLOGY SPECIMEN (THINPREP): NEGATIVE FOR MALIGNANT CELLS. CELLS PRESENT INCLUDE LYMPHOCYTES, A FEW PMNS, AND REACTIVE-APPEARING BRONCHIAL EPITHELIAL CELLS. ICD10 R91.8 GROSS DESCRIPTION: Received on 02/27/2017 is one plastic bottle labeled "Dae Ritchie Right upper Lobe Lung", containing one brush. Prepared is one ThinPrep slide. Vo ICD-9 CODES: CPT CODES: 1: 02734 Electronically Signed Out Jeovany Delgado MD [facility] Pathology [facility] [address] [facility], [place] [address] Technical component performed at [facility], [address] [place] [address] [address], [place], [address]
[2017-02-27 15:09] VITALS: BP 122/67; PULSE 76; RESP 16; O2SAT 92
--- NOTE | 2017-02-27 16:08 | NUR ---
Cough Pt reports that his coughing has improved and is less frequent. Also, he noted that production from his cough has decreased. He reported only one small sputum this p.m. Administered Tessalon Pearles to assist pt with comfort and to further decrease his cough. Care continues.
[2017-02-27 20:06] VITALS: BP 141/72; PULSE 71; RESP 18; O2SAT 94
[2017-02-28] MEDS: Ampicillin-Sulbactam Inj 3,000 MG in 0.9% Sodium Chloride 100 ML IV SCH ×4 (03:31→21:19)
[2017-02-28] MEDS: Sodium Chloride LOK Flush 10 mL Syringe IVFLUSH SCH ×4 (03:33→21:19)
--- NOTE | 2017-02-28 04:35 | NUR ---
activity pt has denied the need for any IV morphine this shift. he states his R sided chest pain is improved and that he is coughing less then before. he has been on RA, sp02 low 90's. he denies any SOB. This AM pt reports that he is having a gout attack in his R knee. knee is warm with mild swelling. he requested that he be given Colchicine as that's what he takes at home for gout attacks. has been cook paged with request, no new orders at this time. pt has been afebrile, VSS. care continues.
[2017-02-28 05:01] VITALS: BP 137/77; PULSE 67; RESP 18; O2SAT 92
[2017-02-28] MEDS: Multivit-Miner-Folic Acid-Iron Tablet PO SCH (09:56)
--- NOTE | 2017-02-28 12:09 | PCM.PNMED ---
Subjective Date of Service Feb 28, 2017 Subjective He developed right knee pain and swelling overnight. He states symptoms are constant with his usual gout attacks. Afebrile. Cough continues to improve, he states he has marked improvement of cough following bronchoscopy. Wash out CYTOLOGY negative for malignancy. Exam Vital Signs Vital Sign - Last Date Time Temp Pulse Resp B/P Pulse Ox O2 Delivery O2 Flow Rate FiO2 02/28/17 05:01 37.0 67 18 137/77 92 Room Air 02/27/17 06:20 3.00 Intake and Output 02/27/17 02/27/17 02/28/17 Cumulative From/Thru 15:00 23:00 07:00 02/20/17 19:21 - 02/28/17 06:46 Intake Total 116 ml 1239 ml 465 ml 07246 ml Output Total 700 ml 800 ml 53433 ml Balance 116 ml 539 ml -335 ml 46180 ml Intake Oral 1000 ml 350 ml 00645 ml IV Total 116 ml 239 ml 115 ml 67447 ml Tube Irrigant 20 ml Output Urine Total 700 ml 800 ml 03822 ml # Voids 6 # Bowel Movements 3 Exam General:in bed , actively coughing HEENT: Normocephalic, atraumatic. External ears without defect. Neck: Supple with full range of motion. No jugular venous distension. Cardiovascular: Regular rate and rhythm with no murmurs, rubs, or gallops appreciated Pulmonary: Posterior lung pardo with no crackles or rhonchi. neg for wheezing. Normal respiratory effort with no use of accessory muscles. Good air movement. Abdomen: Bowel tones present. Soft, nontender, nondistended. Extremities: No clubbing, cyanosis, edema appreciated. Skin: Normal temperature, turgor, and texture Neurological: No focal deficits Psychiatric: Normal mood and affect. Alert and oriented to person, place, and time. IVs and Medications Medications Reviewed: Medications were reviewed in detail Lab and Diagnostics Result Diagram: 02/25/1781202/25/17812 X-Rays, CTs and MRIs . X-RAY CHEST, TWO VIEWS IMPRESSION: 1. There is a 5 cm cavitary mass in the right middle lobe. Consider lung neoplasm or abscess (e.g., bacterial, fungal, tuberculosis). 2. Associated edema of the right middle lobe. 3. Findings discussed with Dr. Caryn Gutierrez. Dictated by: Zack Blanco MD on 02/20/2017 at 14:30 PROCEDURE: CT ANGIO CHEST PULMONARY EMBOLISM ([id number]) INDICATIONS: lung mass, dyspnea, concern for PE, hemothorax TECHNIQUE: After the administration of intravenous contrast, 2 mm thick sections acquired from the pulmonary apices to the posterior costophrenic angles. 3-dimensional maximum intensity projection (MIP) coronal and sagittal reformats were then acquired through the thorax. For radiation dose reduction, the following was used: automated exposure control, adjustment of mA and/or kV according to patient size. IMPRESSION: 1. 4.6 x 4.2 cm cavitary lesion in the right upper lobe situated area of airspace consolidation. Findings suspicious for blastic neoplastic process with post obstructive pneumonia versus cavitary infectious process. 2. Right hilar and right paratracheal mediastinal lymphadenopathy which could be metastatic lymphadenopathy versus reactive lymphadenopathy. 3. No pulmonary embolus. Dictated by: Brooke Morejon MD, PhD on 02/21/2017 at 10:47 Approved by: Brooke Morejon MD, PhD on 02/21/2017 at 10:53 PROCEDURE: X-RAY CHEST, TWO VIEWS ([id number]) INDICATIONS: Cavitary mass RUL TECHNIQUE: 2 views of the chest were acquired. . IMPRESSION: 1. Cavitary mass within the right upper lobe redemonstrated and interval increase in diffuse right lung airspace opacity as well as no air space opacity within the left lower lobe suggesting worsening adjacent right lung and contralateral inflammatory or neoplastic process. Continued radiographic surveillance to resolution is recommended. 2. New small right pleural effusion. Dictated by: Derrick Montoya [facility] Interpreted: Brooke Morejon MD on 02/25/2017 at 9:54 Assessment & Plan 71 male with no significant medical history admitted for hemoptysis 3 days with lung cavitary mass seen on x-ray. # suspected Postobstructive pneumonia: As evidenced by the CTA of chest done on 02/22/17 -- Continue Unasyn 3 g Q6H per ID. Will discharge on clindamycin for 10 more days per ID -- Sputum AFB stain negative -- Urine strep, urine Legionella antigens negative -Repeat chest x-ray 02/25 worsening of pneumonia. Bronchoscopy done on 02/26. bronchial washings cytology negative for malignancy # Hemoptysis with cavitary lung lesion . Present on admission. Improving -Infectious due to an abscess versus underlying lung mass. Most likely infection/lung abscess - CXR as above,TB Isolation precautions removed -ESR 56 procal negative, Pulmonology is consulted. Bronchoscopy done on 02/26. -discussed with Dr Rooney on 02/28. He recommends IR CT-guided biopsy of cavity lesion wall. Discussed with IR Dr. Sheffield, he reviewed CT and recommends treating with antibiotics and repeat imaging in few weeks. Patient states she has marked improvement of cough after bronchoscopy. He no longer has any hemoptysis. We will discharge him on clindamycin for 10 more days tomorrow and follow-up with Dr. Olivarez -- Initial ABG showed no hypoxia.or hypercapnia -- CTA PE prtocol wa sneg for PE: "4.6 x 4.2 cm cavitary lesion in the right upper lobe situated area of airspace consolidation. Findings suspicious for blastic neoplastic process with post obstructive pneumonia versus cavitary infectious process. Right hilar and right paratracheal mediastinal lymphadenopathy which could be metastatic lymphadenopathy versus reactive lymphadenopathy." -- tessalon perls and codeine/guaifenesin for cough -- Pain controlled #Acute right knee gout attack -Patient states colchicine works well for him We will give colchicine. uric acid possible discharge tomorrow requested- # Nicotine dependence. Present on admission. Ongoing - One pack per day smoker times many years - Refuses nicotine patch - Nicotine patch when necessary # Hyponatremia. Present on admission. Resolved - Continue to monitor CODE STATUS discussed with patient: He wishes to be DNR/DNI DVT prophylaxis SCDs, anticoagulation contraindicated at this time due to hemoptysis Disposition: Possible discharge tomorrow GI Prophylaxis: Proton Pump Inhibitor VTE Mechanical Devices: Intermittant Pneumatic CD Resuscitation Status: DNR/DNI:Do Not Resuscitate/Intubate Cricket Gama MD Feb 28, 2017 12:09
[2017-02-28 12:53] LABS: BASOPHILS % (AUTO) 0.3 % (0-3); EOSINOPHILS % (AUTO) 2.6 % (0-5); MONOCYTES % (AUTO) 13.1 % (4-12); Mean Corpuscular Hemoglobin 31.1 pg (27.0-35.0); Mean Corpuscular Volume 90.9 fL (81-100); NEUTROPHILS % (AUTO) 69.4 % (40-74); Platelet Count 382 bil/L (150-400)
[2017-02-28 14:24] VITALS: BP 164/69; PULSE 70; RESP 16; O2SAT 94
[2017-02-28 15:46] VITALS: PULSE 71; RESP 16; O2SAT 95
[2017-02-28] MEDS: Indomethacin 25 mg Capsule PO SCH (17:29)
--- NOTE | 2017-02-28 17:30 | NUR ---
Cough/Gout Pt cough tolerated today and declined all meds for it. Still coughing up white phlegm, but no longer has pink streaks. Pt having gout flair up of right knee and it is swollen, hot and stiff. Pt having pain 5-04/30. Gout and pain medications obtained and given. Pt's d/c held for today due to gout. MD will reassess pt tomorrow. Bed in low, call light in reach, continue Q1hour checks.
[2017-02-28 19:56] VITALS: BP 138/71; PULSE 65; RESP 18; O2SAT 94
[2017-03-01] MEDS: Ampicillin-Sulbactam Inj 3,000 MG in 0.9% Sodium Chloride 100 ML IV SCH ×2 (02:38→08:59)
--- NOTE | 2017-03-01 03:49 | NUR ---
pain pt says when he walks his knee is firer watertender otherwise the pain in his knee has greatly improved. pt states his knee feels less swollen and that he can bend it now. he has declined any need for pain medication. he has slept most of the night appearing comfortable. pt has had minimal cough this shift and says he is not having any chest pain at this time. call light within reach. care continues.
[2017-03-01 05:26] VITALS: BP 155/68; PULSE 62; RESP 18; O2SAT 94
[2017-03-01 05:34] LABS: BASOPHILS % (AUTO) 0.5 % (0-3); EOSINOPHILS % (AUTO) 3.9 % (0-5); MONOCYTES % (AUTO) 15.7 % (4-12); Mean Corpuscular Hemoglobin 30.7 pg (27.0-35.0); Mean Corpuscular Volume 91.2 fL (81-100); NEUTROPHILS % (AUTO) 64.8 % (40-74); Platelet Count 397 bil/L (150-400)
[2017-03-01] MEDS: Multivit-Miner-Folic Acid-Iron Tablet PO SCH (08:59)
[2017-03-01] MEDS: Indomethacin 25 mg Capsule PO SCH (09:00)
[2017-03-01] MEDS: Sodium Chloride LOK Flush 10 mL Syringe IVFLUSH SCH (09:01)
--- NOTE | 2017-03-01 10:15 | PCM.DIMED ---
Discharge Instructions Date of Service Mar 01, 2017 Dates of Hospitalization Feb 20, 2017 at 18:25 Discharge Diagnosis Discharge Diagnosis # suspected Postobstructive pneumonia: As evidenced by the CTA of chest done on 02/22/17 # Hemoptysis with cavitary lung lesion . Present on admission. Improving - due to an abscess versus underlying lung mass. Most likely infection/lung abscess #Acute right knee gout attack # Nicotine dependence. Present on admission. Ongoing # Hyponatremia. Present on admission. Resolved Diet Discharge Diet: No restrictions Activity Discharge Activity: Limited until seen by PCP Call your provider Call your provider for: Fever or Chills, Shortness of breath, Bleeding, Chest pain, Vomitting, Excessive diarrhea, Weakness (unilateral) Patient Instructions Patient Instructions You were hospitalized due to hemoptysis.You were found to have cavitary lung lesion. Lesion seems to be infectious due to lung abscess but underlying malignancy is a possibility. You underwent bronchoscopy and washout. Cytology from washout is negative for malignancy. Please continue clindamycin 300 mg by mouth 4 times a day for 2-3 months. Duration of antibiotic to be decided by Dr. Olivarez outpatient. You Will need repeat CT scan in few weeks and may need CT guided biopsy if lesion persists. Please follow-up with Dr. Olivarez on . Call [phone] for appointment. Follow-up Provider: Abelardo Mendoza MD Follow-up with PCP in: 1 week Provider: Ish Olivarez MD Follow-up in: 2 weeks (on 03/11/17) Cricket Gama MD Mar 01, 2017 10:15
[2017-03-01] MEDS ORDERED: GUAI10LI PO (10:16)
[2017-03-01] MEDS ORDERED: CLIN-78 PO (10:16)
--- NOTE | 2017-03-01 10:40 | NUR ---
Social Work: Discharge D: EMR reviewed. Pt is on day 9 of hospitalization. Per MD in AM multi-disciplinary rounds, pt's TB test was negative and pt received a bronchoscopy on 02/26. Pt is medically ready for discharge today. Pt is independent at baseline. SW met with pt at bedside regarding discharge plan. Pt denies and questions or concerns related to discharge. Pt confirmed that his SO will transport him home via POV. No discharge needs identified. A: Pt who is independent at baseline P: Pt to discharge home with SO SO to transport home via POV. No discharge needs identified. Migdalia James, COMPUTER EDUCATION PROFESSOR
--- NOTE | 2017-03-01 11:51 | PCM.DC.MED ---
Discharge Summary Date of Service Mar 01, 2017 Dates of Hospitalization Date of Hospital Admission Feb 20, 2017 at 18:25 Date of Discharge: Mar 01, 2017 Providers: Admitting Physician: Gera Arzola MD Primary Care Physician: Abelardo Mendoza MD Attending Physician: Gera Arzola MD Diagnosis at Time of Discharge Diagnosis at Time of Discharge # suspected Postobstructive pneumonia: As evidenced by the CTA of chest done on 02/22/17 # Hemoptysis with cavitary lung lesion . Present on admission. Improving - due to an abscess versus underlying lung mass. Most likely infection/lung abscess #Acute right knee gout attack # Nicotine dependence. Present on admission. Ongoing # Hyponatremia. Present on admission. Resolved Consultations ID Dr Olivarez pulm Dr Rooney Procedures XRay, CTs & MRIs . X-RAY CHEST, TWO VIEWS IMPRESSION: 1. There is a 5 cm cavitary mass in the right middle lobe. Consider lung neoplasm or abscess (e.g., bacterial, fungal, tuberculosis). 2. Associated edema of the right middle lobe. 3. Findings discussed with Dr. Caryn Gutierrez. Dictated by: Zack Blanco MD on 02/20/2017 at 14:30 PROCEDURE: CT ANGIO CHEST PULMONARY EMBOLISM ([id number]) INDICATIONS: lung mass, dyspnea, concern for PE, hemothorax TECHNIQUE: After the administration of intravenous contrast, 2 mm thick sections acquired from the pulmonary apices to the posterior costophrenic angles. 3-dimensional maximum intensity projection (MIP) coronal and sagittal reformats were then acquired through the thorax. For radiation dose reduction, the following was used: automated exposure control, adjustment of mA and/or kV according to patient size. IMPRESSION: 1. 4.6 x 4.2 cm cavitary lesion in the right upper lobe situated area of airspace consolidation. Findings suspicious for blastic neoplastic process with post obstructive pneumonia versus cavitary infectious process. 2. Right hilar and right paratracheal mediastinal lymphadenopathy which could be metastatic lymphadenopathy versus reactive lymphadenopathy. 3. No pulmonary embolus. Dictated by: Brooke Morejon MD, PhD on 02/21/2017 at 10:47 Approved by: Brooke Morejon MD, PhD on 02/21/2017 at 10:53 PROCEDURE: X-RAY CHEST, TWO VIEWS ([id number]) INDICATIONS: Cavitary mass RUL TECHNIQUE: 2 views of the chest were acquired. . IMPRESSION: 1. Cavitary mass within the right upper lobe redemonstrated and interval increase in diffuse right lung airspace opacity as well as no air space opacity within the left lower lobe suggesting worsening adjacent right lung and contralateral inflammatory or neoplastic process. Continued radiographic surveillance to resolution is recommended. 2. New small right pleural effusion. Dictated by: Derrick Montoya RRKenyon Interpreted: Brooke Morejon MD on 02/25/2017 at 9:54 Brief History per HPI Mr. Ritchie is a 71-year-old male with past medical history of gout and long-time nicotine dependence presented today to the urgent care secondary to hemoptysis 3 days. This is been accompanied with generalized weakness, night sweats, headaches and a reported 100 pound weight loss over the last 2 years. He states he was "runin a chainsaw" when these symptoms started 3 days ago and he has been coughing up clotted blood intermittently ever since. He states some shortness of breath though denies chest pain, palpitations. On inhalation or exhalation, abdominal pain, GI or symptoms numbness or tingling in his extremities, visual disturbances. Does not endorse a small headache but he states this is chronic ever since he was a small child. 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 States he has had asbestos exposure both in the [place] and then in his career afterwards. He states he did have a TB exposure in the 1950s from a neighbor child. Denies travel outside the [place] though does state travel to [facility] most parts of [place] the [facility]. This past August he had a significant exposure to what his fiance refers to as "the black mold" and rat feces while cleaning out areas of a junk yard without gloves or mask. He currently lives with his fiance with 3 pet dogs, has never owned other pets, never owned birds. 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 Chest x-ray in urgent care showed a 5 cm cavitary mass in the right middle lobe thought to be lung neoplasm or abscess. Hospital Course 71 male with no significant medical history admitted for hemoptysis 3 days with lung cavitary mass seen on x-ray. # Hemoptysis with cavitary lung lesion . Present on admission. Improving -Infectious due to an abscess versus underlying lung mass. Most likely infection/lung abscess -ESR 56 procal negative, Pulmonology is consulted. Bronchoscopy done on 02/26. bronchial washings cytology negative for malignancy. Sputum negative for AFB -discussed with Dr Rooney on 02/28. He recommends IR CT-guided biopsy of cavity lesion wall. Discussed with IR Dr. Sheffield, he reviewed CT and recommends treating with antibiotics and repeat imaging in few weeks. Patient states he has marked improvement of cough after bronchoscopy. He no longer has any hemoptysis. We will discharge him on clindamycin for 2-3 and follow-up with Dr. Olivarez on 03/11/17. Repeat imaging in few weeks and referred for CT- guided biopsy lesion persists -- Initial ABG showed no hypoxia.or hypercapnia -- CTA PE prtocol wa sneg for PE: "4.6 x 4.2 cm cavitary lesion in the right upper lobe situated area of airspace consolidation. Findings suspicious for blastic neoplastic process with post obstructive pneumonia versus cavitary infectious process. Right hilar and right paratracheal mediastinal lymphadenopathy which could be metastatic lymphadenopathy versus reactive lymphadenopathy." -- tessalon perls and codeine/guaifenesin for cough -- Pain controlled # suspected Postobstructive pneumonia: As evidenced by the CTA of chest done on 02/22/17 -- Treated with Unasyn 3 g Q6H per ID. Will discharge on clindamycin for 2-3 months per ID -- Sputum AFB stain negative -- Urine strep, urine Legionella antigens negative - Bronchoscopy done on 02/26. bronchial washings cytology negative for malignancy #Acute right knee gout attack -Patient states colchicine works well for him gave colchicine. No relief. Gave indometacin and improved. Uric acid 5.8. # Nicotine dependence. Present on admission. Ongoing - One pack per day smoker times many years - Refuses nicotine patch - Nicotine patch when necessary Disposition:discharge home Condition on discharge stable Exam Vital Signs (Last) Date Time Temp Pulse Resp B/P Pulse Ox O2 Delivery O2 Flow Rate FiO2 03/01/17 05:26 36.6 62 18 155/68 94 Room Air 02/27/17 06:20 3.00 Exam General:in bed , actively coughing HEENT: Normocephalic, atraumatic. External ears without defect. Neck: Supple with full range of motion. No jugular venous distension. Cardiovascular: Regular rate and rhythm with no murmurs, rubs, or gallops appreciated Pulmonary: Posterior lung pardo with no crackles or rhonchi. neg for wheezing. Normal respiratory effort with no use of accessory muscles. Good air movement. Abdomen: Bowel tones present. Soft, nontender, nondistended. Extremities: No clubbing, cyanosis, edema appreciated. Skin: Normal temperature, turgor, and texture Neurological: No focal deficits Psychiatric: Normal mood and affect. Alert and oriented to person, place, and time. Test 02/20/17 20:30 02/22/17 05:07 02/22/17 14:00 02/23/17 05:50 Magnesium Level 1.8mg/dL (1.6-2.6) C-Reactive Protein 23.4mg/dL (0.0-0.5) Cryptococcus Antigen Negative (Negative) TB Test (QFT) Gold In Tube Negative (Negative) TB Test (QFT) Incubation Comment (.) TB Test (QFT) Mitogen 7.17IU/mL (.) TB Test (QFT) Antigen 0.20IU/mL (.) TB Test (QFT) Antigen Minus Nil 0.08IU/mL (.) TB Test (QFT) TB - Nil 0.12IU/mL (.) TB Test (QFT) Positive Criteria Comment (.) TB Test (QFT) Interpretation Comment (.) Procalcitonin 0.08ng/mL (0.00-0.08) Coccidioides Antibody Negative (Neg:<1:2) Urine Legionella pneumophilia Ag Negative (Negative) Erythrocyte Sedimentation Rate 56mm/hr (0-30) Hemoglobin A1c 5.9% (4.8-5.6) Test 02/25/17 10:50 02/26/17 12:00 02/27/17 23:59 02/28/17 12:33 Fungal Antibodies <31pg/mL (<80) Body Fluid Source Bronchial washing Body Fluid Color Colorless (Clear) Body Fluid Appearance Clear Body Fluid WBC 357/mm3 Body Fluid RBC 50/mm3 Body Fluid Polynuclear WBCs 70% Body Fluid Lymphocytes 26% Body Fluid Monocytes 4% Body Fluid Eosinophils 0% Body Fluid Basophils 0% Uric Acid 5.8mg/dL (2.6-7.2) Test 03/01/17 05:10 White Blood Count 8.3th/mm3 (3.8-10.1) Red Blood Count 4.30mil/mm3 (4.40-5.80) Hemoglobin 13.2g/dL (13.8-17.2) Hematocrit 39.2% (41.0-50.0) Mean Corpuscular Volume 91.2fL (81-100) Mean Corpuscular Hemoglobin 30.7pg (27.0-35.0) Mean Corpuscular Hemoglobin Concent 33.7% (32.0-37.0) Red Cell Distribution Width 12.6% (12.3-15.4) Platelet Count 397bil/L (150-400) Neutrophils (%) (Auto) 64.8% (40-74) Lymphocytes (%) (Auto) 14.7% (14-46) Monocytes (%) (Auto) 15.7% (4-12) Eosinophils (%) (Auto) 3.9% (0-5) Basophils (%) (Auto) 0.5% (0-3) Sodium Level 139mEq/L (134-144) Potassium Level 4.4mEq/L (3.5-5.2) Chloride Level 99mEq/L (97-108) Carbon Dioxide Level 28mmol/L (18-29) Blood Urea Nitrogen 17mg/dL (8-27) Creatinine 0.94mg/dL (0.76-1.27) Estimat Glomerular Filtration Rate 85mL/min (>59) Glucose Level 121mg/dL (60-99) Calcium Level 8.6mg/dL (8.5-10.1) Total Bilirubin 0.3mg/dL (0.0-1.2) Aspartate Amino Transf (AST/SGOT) 22U/L (0-50) Alanine Aminotransferase (ALT/SGPT) 35U/L (0-44) Alkaline Phosphatase 66U/L (25-160) Total Protein 5.9g/dL (6.4-8.4) Albumin 2.7g/dL (3.4-5.0) Discharge Medications Discharge Medications Aspirin Chew (Aspirin Chew) 81 Mg Chew 81 MG PO DAILY (Reported) Clindamycin (Clindamycin) 300 Mg Capsule 300 MG PO QID Prescribed by: BELEM GAUTHIER MD Colchicine (Colcrys) 0.6 Mg Tablet 0.6 MG PO DAILY (Reported) Multivit W-Mn/FA/Lycop/Lut/Ala (Multi-Betic Tablet) 1 Each Tablet 1 EACH PO DAILY (Reported) Ubidecarenone/Vit E Acetate (Co Q-10 100 mg Softgel) 1 Each Capsule 1 EACH PO DAILY (Reported) As needed Guaifenesin/Codeine Phosphate (Guaifenesin-Codeine Syrup) 10 Ml Liquid 5 ML PO Q4H PRN PRN For Cough Prescribed by: BELEM GAUTHIER MD Followup Plan Disposition: Home Discharge Diet: No restrictions Discharge Activity: Limited until seen by PCP Patient Instructions You were hospitalized due to hemoptysis.You were found to have cavitary lung lesion. Lesion seems to be infectious due to lung abscess but underlying malignancy is a possibility. You underwent bronchoscopy and washout. Cytology from washout is negative for malignancy. Please continue clindamycin 300 mg by mouth 4 times a day for 2-3 months. Duration of antibiotic to be decided by Dr. Olivarez outpatient. You Will need repeat CT scan in few weeks and may need CT guided biopsy if lesion persists. Please follow-up with Dr. Olivarez on . Call [phone] for appointment. Follow-up Provider: Abelardo Mendoza MD Follow-up with PCP in: 1 week Provider: Ish Olivarez MD Follow-up in: 2 weeks (on 03/11/17) Time spent 40 minutes copies to: Abelardo Mendoza MD; Ish Olivarez MD, Melaku MD Mar 01, 2017 11:51
[2017-03-01] MEDS ORDERED: INDO25CA PO (12:57)
--- NOTE | 2017-03-01 13:12 | NUR ---
Discharge Pt discharged at 1255 with girlfriend to private vehicle. Pt not having SOB on room air and cough in under control. Pt's knee pain from gout is 3/10. Pt has discharge instructions, care notes and rx's. On discharge instructions pt was told to f/u with PCP in one week, but pt states he no longer goes there. He is wanting to start up with new MD that girlfriend goes to. Unable to call MD office since it is Thursday, but advised pt to call and say he needs f/u from hospital and they should get him in or to call residency clinic. IV removed intact, VSS, CHANDLER, A&O x 3. Pt has all belongings and all questions answered.
== END 2017-03-01 13:00 | disposition home or self-care (01) | DRG 167 ==
LOC: OSC 18:25
PROVIDERS: ADMIT Internal Medicine; ATTEND Hospitalist
PROC: 4A033R1 Measurement of Arterial Saturation, Peripheral, Percutaneous Approach (ICD-10-PCS; 2017-02-21)
PROC: 0BBC8ZX Excision of Right Upper Lung Lobe, Via Natural or Artificial Opening Endoscopic, Diagnostic (ICD-10-PCS; principal; 2017-02-26 10:30)
PROC: 0B948ZX Drainage of Right Upper Lobe Bronchus, Via Natural or Artificial Opening Endoscopic, Diagnostic (ICD-10-PCS; 2017-02-26 10:30)
DX: J85.1 Abscess of lung with pneumonia (principal); R04.2 Hemoptysis; E87.1 Hypo-osmolality and hyponatremia; F17.210 Nicotine dependence, cigarettes, uncomplicated; M10.9 Gout, unspecified; I10 Essential (primary) hypertension